=== PATIENT | female | born 1940 | race Caucasian/White ===

== ENCOUNTER 2016-11-24 16:47 | Inpatient (IN) | payer OTHER ==
[~2016-11-24] VITALS: Ht 167.6 cm; Wt 49.8 kg
[~2016-11-24 16:47] MED LIST: ESCI10TA17 PO; FURO20TA PO; NUTR-977 PO; ONDA8TAB6 PO; TRAM-10 PO
[2016-11-24] MEDS ORDERED: OXGN (18:02)
[2016-11-24] MEDS ORDERED: POTA-74 PO (18:02)
[2016-11-24 18:35] LABS: BASO % 0.2 %; BASO ABS # 0.02 K/uL (0-0.2); COMPLETE YES; EOS % 0.6 %; HEMATOCRIT 31.7 % (37-47); IG% 0.3 %; LYMPH % 2.9 %; LYMPH ABS # 0.35 K/uL (1.2-3.4); MEAN CELL VOLUME 82.3 fL (80-100); MEAN CORPUSCULAR HEMOGLOBIN 26.8 pg (25-34); MEAN CORPUSCULAR HGB CONC 32.5 g/dl (32-36); MEAN PLATELET VOLUME 8.2 fL (7.4-10.4); MONO % 3.4 %; NEUT % 92.6 %; PLATELET COUNT 389 K/uL (130-400); RED BLOOD COUNT 3.85 M/uL (4.2-5.4); WHITE BLOOD COUNT 11.92 K/uL (4.8-10.8)
[2016-11-24 18:48] LABS: INR 1.1 (0.9-1.1); PARTIAL THROMBOPLASTIN RATIO 1.3; PROTHROMBIN TIME (PATIENT) 12.1 SECONDS (9.0-12.0)
[2016-11-24 18:52] LABS: CALCIUM 7.9 mg/dl (8.5-10.1); CREATININE 0.37 mg/dl (0.60-1.20); POTASSIUM 3.3 mmol/L (3.5-5.1)
--- NOTE | 2016-11-24 19:07 | DIAGNOSTIC IMAGING REPORT ---
CT OF THE HEAD WITHOUT CONTRAST CLINICAL HISTORY: History of breast and lung carcinoma with brain metastasis. COMPARISON STUDY: MRI of the brain June 13, 2016 and June 14, 2016. TECHNIQUE: Helical axial images of the head were obtained without IV contrast. Automated exposure control was utilized for the study. FINDINGS: No acute intracranial hemorrhage, midline shift or mass effect is present. A 1.7 cm partially calcified extra-axial mass within the right middle cranial fossa is unchanged and likely reflects a meningioma. Edema within the anterior left frontal lobe has improved since exam of June 13, 2016. The enhancing mass shown on that exam is not well depicted on this exam. The findings suggest a treatment response. Edema within the posterior left temporal lobe has slightly increased since prior MRI. This focus of edema measures 3.9 x 3.5 cm. Ventricular system is unremarkable. The basilar cisterns are patent. There are no extra-axial collections. Visualized portions of the sinuses and mastoid air cells are clear. There are no suspicious calvarial lesions. IMPRESSION: 1. No acute intracranial hemorrhage. 2. Interval decrease in edema within the anterior left temporal lobe since MRI of June 13, 2016. This suggests a treatment response with suspected significant decrease in size of the left anterior temporal lobe mass since prior MRI. However, edema within the posterior left temporal lobe has increased since prior MRI. This is nonspecific and suboptimally assessed on this unenhanced exam but could reflect an additional lesion or posttreatment change. Electronically signed by: Darrius Gibson M.D. 11/24/2016 7:05 PM Dictated Date/Time: 11/24/2016 6:56 PM
--- NOTE | 2016-11-24 19:22 | DIAGNOSTIC IMAGING REPORT ---
CT OF THE ABDOMEN AND PELVIS WITHOUT CONTRAST CLINICAL HISTORY: Generalized pain. History of breast and lung cancer. COMPARISON STUDY: PET/CT August 08, 2016. TECHNIQUE: Axial images of the abdomen and pelvis were obtained without IV contrast. Images were reviewed in the axial, sagittal, and coronal planes. FINDINGS: Bilateral pleural effusions are partially imaged on this exam. The right pleural effusion is likely large while the left pleural effusion is likely moderate. Associated airspace opacities are present. The effusions may be partially loculated. There is mild dilatation of the distal descending thoracic aorta which measures 3.4 cm. This exam is significantly compromised given the lack of IV and oral contrast. The gallbladder is surgically absent. Apparent mild intrahepatic biliary ductal dilatation within the left hepatic lobe is similar to PET/CT of August 08, 2016. Anasarca is noted. No pneumatosis, free air or portal venous gas is present. There is no hydronephrosis. There is no evidence for a bowel obstruction. There is mild wall thickening of several portions of the colon, most evident within the ascending colon. There is extensive sigmoid diverticulosis. The sensitivity for the detection of acute diverticulitis is greatly diminished since exam. There is a moderate amount of stool within the rectum. No enlarged abdominal lymph nodes are present. Prominent left external iliac lymph nodes shown on prior exam may have slightly decreased in size but are suboptimally assessed on this examination. A small amount of ascites is noted. IMPRESSION: 1. Study significantly compromised given the lack of IV and oral contrast. 2. Partially visualized moderate bilateral pleural effusions, right larger than left with associated airspace opacities which could reflect atelectasis or consolidation. 3. Generalized anasarca. 4. Extensive sigmoid diverticulosis. The sensitivity for detection of acute diverticulitis is significantly diminished on this exam but no convincing evidence for acute diverticulitis. Mild multifocal nonspecific colonic wall thickening may reflect colitis or be due to underdistention. 5. Interval decrease in left external iliac lymphadenopathy since PET/CT of August 08, 2016. 6. Moderate amount of stool within the rectum. Electronically signed by: Darrius Gibson M.D. 11/24/2016 7:20 PM Dictated Date/Time: 11/24/2016 7:07 PM
--- NOTE | 2016-11-24 20:12 | DIAGNOSTIC IMAGING REPORT ---
CHEST 2 VIEWS ROUTINE CLINICAL HISTORY: Generalized pain. Evaluate for pneumonia. History of lung and breast cancer. COMPARISON STUDY: Chest radiograph June 13, 2016 and PET/CT August 08, 2016. FINDINGS: There are moderate bilateral pleural effusions, left larger than right. Diffuse interstitial thickening has increased. Left perihilar opacity has developed. Cardiomediastinal silhouette is stable. There is no pneumothorax. IMPRESSION: 1. Interval development of moderate bilateral pleural effusions, left larger than right, with associated opacities which could reflect atelectasis or consolidation. 2. Development of left perihilar opacity which could reflect an area of pneumonia or mass. 3. Interval development of interstitial thickening, greater within the left lung. This is nonspecific but may reflect pulmonary edema. Radiographic follow up is recommended for these nonspecific findings. Electronically signed by: Darrius Gibson M.D. 11/24/2016 8:11 PM Dictated Date/Time: 11/24/2016 8:08 PM
--- NOTE | 2016-11-24 20:14 | DIAGNOSTIC IMAGING REPORT ---
LEFT PELVIS/UNILATERAL HIP 2-3VIEWS CLINICAL HISTORY: Left hip pain. Evaluate for fracture. COMPARISON: PET/CT August 08, [address] of the abdomen and pelvis performed earlier today. FINDINGS: There are pelvic surgical clips. The sacroiliac joints and symphysis pubis are intact. No acute fracture is identified within the pelvis or the hips. There is a moderate amount of stool within the rectum. IMPRESSION: 1. No acute fracture within the pelvis or hips. 2. Moderate to large amount of stool within the rectum. Electronically signed by: Darrius Gibson M.D. 11/24/2016 8:12 PM Dictated Date/Time: 11/24/2016 8:11 PM
--- NOTE | 2016-11-24 20:26 | DIAGNOSTIC IMAGING REPORT ---
LEFT LOWER EXTREMITY VENOUS DOPPLER CLINICAL HISTORY: Left leg pain. COMPARISON STUDY: Bilateral lower extremity venous Doppler July 16, 2016. TECHNIQUE: Sonography of the deep venous system of the left lower extremity was performed. Compression and augmentation were evaluated. FINDINGS: The left common femoral, superficial femoral and popliteal veins were compressible. Augmentation was normal. Flow was shown within the deep calf vessels. IMPRESSION: No evidence of deep venous thrombus within the left lower extremity. Electronically signed by: Darrius Gibson M.D. 11/24/2016 8:24 PM Dictated Date/Time: 11/24/2016 8:23 PM
[2016-11-24 21:17] LABS: MAGNESIUM 2.1 mg/dl (1.8-2.4)
[2016-11-24] MEDS ORDERED: POTASSIUM CHLORIDE 10 MEQ TABCR PO STA (21:46)
[2016-11-24] MEDS ORDERED: HYDROmorphone INJ 0.5 MG/0.5 ML SYR IV PRN (23:00)
[2016-11-24] MEDS ORDERED: ALBUT/IPRATROP 3MG/0.5MG NEB 3 ML VIAL INH PRN (23:00)
[2016-11-24] MEDS ORDERED: OXYCODONE/ACETAMINOPHEN 5-325 TAB PO PRN (23:00)
[2016-11-24] MEDS ORDERED: NITROGLYCERIN 0.4 MG SL PER TAB CHARGE SL PRN (23:00)
[2016-11-24] MEDS ORDERED: ACETAMINOPHEN 325 MG TAB PO PRN (23:00)
[2016-11-24] MEDS ORDERED: ONDANSETRON INJ 2 MG/ML 2 ML VIAL IV PRN (23:00)
[2016-11-24] MEDS ORDERED: FUROSEMIDE INJ 40 MG in SYRINGE 0 ML IV STA (23:15)
[2016-11-24] MEDS ORDERED: DEXAMETHASONE SOD INJ 10 MG/ML VIAL IV STA (23:15)
[2016-11-24] MEDS ORDERED: FUROSEMIDE 40 MG/4 ML VIAL ONE (23:22)
[2016-11-24 23:42] LABS: THYROID STIMULATING HORMONE 1.75 uIu/ml (0.300-4.500)
[2016-11-24 23:55] VITALS: BP 134/84; PULSE 83; TEMP 37; O2SAT 97; Ht 167.6 cm; Wt 49.8 kg
[2016-11-25] VITALS (7 sets, daily range): BP systolic 115–134; BP diastolic 80–88; PULSE 83–93; TEMP 36.2–37; O2SAT 93–99
--- NOTE | 2016-11-25 00:02 | EMERGENCY ROOM VISIT NOTE ---
History Report prepared by vEe: Tana Kellogg Under the Supervision of: Dr. Julien iWse M.D. First contact with patient: 17:30 Chief Complaint: PAIN (GENERALIZED) Stated Complaint: GEN. BODY PAIN History of Present Illness The patient is a 76 year old female who presents to the Emergency Room with complaints of worsening left-sided leg pain and headache beginning today. 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 The patient has finished radiation however she did have multiple rounds of radiation in 2015. Today the patient was still in bed around 3pm when her went in to try and get her up out of bed. She was complaining of significant pain to the left side of her head and leg. However when EMS arrived to the scene she did not complain of any pain to them. The patient has had a decrease in appetite and is having difficulty chewing and swallowing. She will chew the food and then spit it out. This has worsened over the past few weeks. The patient has also been experiencing swelling to her legs since June. She has been on multiple rounds of diuretics to try and decrease the swelling. Recently she was seen in Dr. Elias's office, who follows the patient, for cough with clear sputum. A chest X -Ray revealed bronchitis. She was put on antibiotics, a steroid, and at home oxygen. Yesterday the patient was seen again at the office and had another chest X-ray done which showed fluid in her left lung. Her kidney function was good and she was put on a potassium pill. The patient does have a PET scan scheduled for this upcoming week to see if the cancer has returned. 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 Per the patient, she has left sided groin pain and left leg pain. She denies pain to any other body part. She is not on a blood thinner. Source of History: patient History Limited By: other (Poor memory) Onset: today Position: leg (left) Timing: worsening Modifying Factors (Worsening): movement Associated Symptoms: + cough, + headache, + weakness Note: Patient has been experiencing trouble chewing and swallowing. Review of Systems See HPI for pertinent positives & negatives. A total of 10 systems reviewed and were otherwise negative. Past Medical & Surgical Medical Problems: (1) Dyslipidemia (2) Hiatal hernia (3) HTN (hypertension) (4) Lung cancer (5) Malignant neoplasm of upper-outer quadrant of female breast (6) Respiratory failure, acute (7) Tobacco abuse Surgical Problems: (1) History of hysterectomy (2) History of lumpectomy of left breast (3) Hx of cholecystectomy Family History Patient reports no known family medical history. Social History Smoking Status: Former Smoker Alcohol Use: none Drug Use: none Marital Status: Housing Status: lives with significant other Occupation Status: retired Current/Historical Medications Scheduled Enteral Nutrition Formula (Ensure Plus Vanilla), 0.5 CAN PO DAILY Escitalopram (Lexapro), 20 MG PO DAILY Furosemide (Lasix), 20 MG PO DAILY Ondansetron Hcl (Zofran), 8 MG PO DAILY Oxygen (Oxygen), 2 LITERS NA CONTINOUS Potassium Chloride (Potassium Chloride Er), 10 MEQ PO DAILY Scheduled PRN Tramadol (Ultram), 50 MG PO Q4H PRN for Pain Allergies Coded Allergies: Chocolate (Unverified Allergy, Mild, RASH, 04/26/16) NO KNOWN DRUG ALLERGIES (Verified Allergy, Mild, ., 11/24/16) Blue Dyes (Parenteral) (Verified Allergy, Unknown, hot flash, 06/13/16) states had blue dye for test in the 1970s and became very hot as soon as administered. Physical Exam Vital Signs Date Time Temp Pulse Resp B/P Pulse Ox O2 Delivery O2 Flow Rate FiO2 11/24/16 23:25 82 16 135/85 95 Room Air 11/24/16 22:15 80 20 125/71 96 Room Air 11/24/16 20:38 86 20 127/78 96 Nasal Cannula 2.0 11/24/16 19:12 89 20 147/94 91 Nasal Cannula 2.0 11/24/16 17:01 94 11/24/16 16:55 37.0 92 20 124/85 94 Nasal Cannula 2.0 Physical Exam Constitutional: Vital signs reviewed. Eyes: Pupils are equal round reactive to light. Conjunctiva are noninjected. ENT: Pharynx is clear without erythema or exudate. Mucous membranes are dry. Neck supple without meningeal signs. Respiratory: Clear to auscultation bilaterally. Breath sounds are equal bilaterally. Cardiovascular: Regular rate and rhythm. No rubs or gallops. GI: Soft, nondistended. Left lower quadrant tenderness with no guarding. Bowel sounds are present. Musculoskeletal: Mild left hip tenderness, no swelling or erythema, increased warmth. Calf tenderness to left leg. Integumentary: No cyanosis. Neurologic: The patient is awake and alert. Cranial nerves II-XII are intact. Motor is 5 out of 5 all extremities. Sensation is intact to light touch all extremities. Normal speech. No pronator drift. Psychiatric: Normal affect. Medical Decision & Procedures ER Provider Diagnostic Interpretation: Other radiology results as stated below per my review and the radiologist's interpretation: LEFT LOWER EXTREMITY VENOUS DOPPLER CLINICAL HISTORY: Left leg pain. COMPARISON STUDY: Bilateral lower extremity venous Doppler July 16, 2016. TECHNIQUE: Sonography of the deep venous system of the left lower extremity was performed. Compression and augmentation were evaluated. FINDINGS: The left common femoral, superficial femoral and popliteal veins were compressible. Augmentation was normal. Flow was shown within the deep calf vessels. IMPRESSION: No evidence of deep venous thrombus within the left lower extremity. Electronically signed by: Darrius Gibson M.D. 11/24/2016 8:24 PM Dictated Date/Time: 11/24/2016 8:[address] OF THE HEAD WITHOUT CONTRAST CLINICAL HISTORY: History of breast and lung carcinoma with brain metastasis. COMPARISON STUDY: MRI of the brain June 13, 2016 and June 14, 2016. TECHNIQUE: Helical axial images of the head were obtained without IV contrast. Automated exposure control was utilized for the study. FINDINGS: No acute intracranial hemorrhage, midline shift or mass effect is present. A 1.7 cm partially calcified extra-axial mass within the right middle cranial fossa is unchanged and likely reflects a meningioma. Edema within the anterior left frontal lobe has improved since exam of June 13, 2016. The enhancing mass shown on that exam is not well depicted on this exam. The findings suggest a treatment response. Edema within the posterior left temporal lobe has slightly increased since prior MRI. This focus of edema measures 3.9 x 3.5 cm. Ventricular system is unremarkable. The basilar cisterns are patent. There are no extra-axial collections. Visualized portions of the sinuses and mastoid air cells are clear. There are no suspicious calvarial lesions. IMPRESSION: 1. No acute intracranial hemorrhage. 2. Interval decrease in edema within the anterior left temporal lobe since MRI of June 13, 2016. This suggests a treatment response with suspected significant decrease in size of the left anterior temporal lobe mass since prior MRI. However, edema within the posterior left temporal lobe has increased since prior MRI. This is nonspecific and suboptimally assessed on this unenhanced exam but could reflect an additional lesion or posttreatment change. Electronically signed by: Darrius Gibson M.D. 11/24/2016 7:05 PM Dictated Date/Time: 11/24/2016 6:56 PM CHEST 2 VIEWS ROUTINE CLINICAL HISTORY: Generalized pain. Evaluate for pneumonia. History of lung and breast cancer. COMPARISON STUDY: Chest radiograph June 13, 2016 and PET/CT August 08, 2016. FINDINGS: There are moderate bilateral pleural effusions, left larger than right. Diffuse interstitial thickening has increased. Left perihilar opacity has developed. Cardiomediastinal silhouette is stable. There is no pneumothorax. IMPRESSION: 1. Interval development of moderate bilateral pleural effusions, left larger than right, with associated opacities which could reflect atelectasis or consolidation. 2. Development of left perihilar opacity which could reflect an area of pneumonia or mass. 3. Interval development of interstitial thickening, greater within the left lung. This is nonspecific but may reflect pulmonary edema. Radiographic follow up is recommended for these nonspecific findings. Electronically signed by: Darrius Gibson M.D. 11/24/2016 8:11 PM Dictated Date/Time: 11/24/2016 8:[address] OF THE ABDOMEN AND PELVIS WITHOUT CONTRAST CLINICAL HISTORY: Generalized pain. History of breast and lung cancer. COMPARISON STUDY: PET/CT August 08, 2016. TECHNIQUE: Axial images of the abdomen and pelvis were obtained without IV contrast. Images were reviewed in the axial, sagittal, and coronal planes. FINDINGS: Bilateral pleural effusions are partially imaged on this exam. The right pleural effusion is likely large while the left pleural effusion is likely moderate. Associated airspace opacities are present. The effusions may be partially loculated. There is mild dilatation of the distal descending thoracic aorta which measures 3.4 cm. This exam is significantly compromised given the lack of IV and oral contrast. The gallbladder is surgically absent. Apparent mild intrahepatic biliary ductal dilatation within the left hepatic lobe is similar to PET/CT of August 08, 2016. Anasarca is noted. No pneumatosis, free air or portal venous gas is present. There is no hydronephrosis. There is no evidence for a bowel obstruction. There is mild wall thickening of several portions of the colon, most evident within the ascending colon. There is extensive sigmoid diverticulosis. The sensitivity for the detection of acute diverticulitis is greatly diminished since exam. There is a moderate amount of stool within the rectum. No enlarged abdominal lymph nodes are present. Prominent left external iliac lymph nodes shown on prior exam may have slightly decreased in size but are suboptimally assessed on this examination. A small amount of ascites is noted. IMPRESSION: 1. Study significantly compromised given the lack of IV and oral contrast. 2. Partially visualized moderate bilateral pleural effusions, right larger than left with associated airspace opacities which could reflect atelectasis or consolidation. 3. Generalized anasarca. 4. Extensive sigmoid diverticulosis. The sensitivity for detection of acute diverticulitis is significantly diminished on this exam but no convincing evidence for acute diverticulitis. Mild multifocal nonspecific colonic wall thickening may reflect colitis or be due to underdistention. 5. Interval decrease in left external iliac lymphadenopathy since PET/CT of August 08, 2016. 6. Moderate amount of stool within the rectum. Electronically signed by: Darrius Gibson M.D. 11/24/2016 7:20 PM Dictated Date/Time: 11/24/2016 7:07 PM LEFT PELVIS/UNILATERAL HIP 2-3VIEWS CLINICAL HISTORY: Left hip pain. Evaluate for fracture. COMPARISON: PET/CT August 08, [address] of the abdomen and pelvis performed earlier today. FINDINGS: There are pelvic surgical clips. The sacroiliac joints and symphysis pubis are intact. No acute fracture is identified within the pelvis or the hips. There is a moderate amount of stool within the rectum. IMPRESSION: 1. No acute fracture within the pelvis or hips. 2. Moderate to large amount of stool within the rectum. Electronically signed by: Darrius Gibson M.D. 11/24/2016 8:12 PM Dictated Date/Time: 11/24/2016 8:11 PM Laboratory Results 11/24/16 18:16 Red Blood Count 3.85, Mean Corpuscular Volume 82.3, Mean Corpuscular Hemoglobin 26.8, Mean Corpuscular Hemoglobin Concent 32.5, Mean Platelet Volume 8.2, Neutrophils (%) (Auto) 92.6, Lymphocytes (%) (Auto) 2.9, Monocytes (%) (Auto) 3.4, Eosinophils (%) (Auto) 0.6, Basophils (%) (Auto) 0.2, Neutrophils # (Auto) 11.05, Lymphocytes # (Auto) 0.35, Monocytes # (Auto) 0.40, Eosinophils # (Auto) 0.07, Basophils # (Auto) 0.02 11/24/16 18:16 Test 11/24/16 18:16 11/24/16 22:55 White Blood Count 11.92 K/uL (4.8-10.8) Red Blood Count 3.85 M/uL (4.2-5.4) Hemoglobin 10.3 g/dL (12.0-16.0) Hematocrit 31.7 % (37-47) Mean Corpuscular Volume 82.3 fL (80-100) Mean Corpuscular Hemoglobin 26.8 pg (25-34) Mean Corpuscular Hemoglobin Concent 32.5 g/dl (32-36) Platelet Count 389 K/uL (130-400) Mean Platelet Volume 8.2 fL (7.4-10.4) Neutrophils (%) (Auto) 92.6 % Lymphocytes (%) (Auto) 2.9 % Monocytes (%) (Auto) 3.4 % Eosinophils (%) (Auto) 0.6 % Basophils (%) (Auto) 0.2 % Neutrophils # (Auto) 11.05 K/uL (1.4-6.5) Lymphocytes # (Auto) 0.35 K/uL (1.2-3.4) Monocytes # (Auto) 0.40 K/uL (0.11-0.59) Eosinophils # (Auto) 0.07 K/uL (0-0.5) Basophils # (Auto) 0.02 K/uL (0-0.2) RDW Standard Deviation 56.9 fL (36.4-46.3) RDW Coefficient of Variation 18.8 % (11.5-14.5) Immature Granulocyte % (Auto) 0.3 % Immature Granulocyte # (Auto) 0.03 K/uL (0.00-0.02) Prothrombin Time 12.1 SECONDS (9.0-12.0) Prothromb Time International Ratio 1.1 (0.9-1.1) Activated Partial Thromboplast Time 32.6 SECONDS (21.0-31.0) Partial Thromboplastin Ratio 1.3 Anion Gap 10.0 mmol/L (3-11) Est Creatinine Clear Calc Drug Dose 110.3 ml/min Estimated GFR () 120.3 Estimated GFR (Non- 103.8 BUN/Creatinine Ratio 31.0 (10-20) Calcium Level 7.9 mg/dl (8.5-10.1) Magnesium Level 2.1 mg/dl (1.8-2.4) Total Bilirubin 0.8 mg/dl (0.2-1) Direct Bilirubin 0.5 mg/dl (0-0.2) Aspartate Amino Transf (AST/SGOT) 18 U/L (15-37) Alanine Aminotransferase (ALT/SGPT) 13 U/L (12-78) Alkaline Phosphatase 67 U/L (45-117) Pro-B-Type Natriuretic Peptide 4358 pg/ml (0-1800) Total Protein 5.0 gm/dl (6.4-8.2) Albumin 1.8 gm/dl (3.4-5.0) Lipase 70 U/L (73-393) Thyroid Stimulating Hormone (TSH) 1.750 uIu/ml (0.300-4.500) Laboratory results as reviewed by me. Medications Administered Medications (Trade) Dose Ordered Sig/Darcy Route Start Time Stop Time Status Last Admin Dose Admin Potassium Chloride (Klor-Con M10) 20 meq NOW STAT PO 11/24/16 21:46 11/24/16 21:49 DC 11/24/16 21:56 20 MEQ Dexamethasone Sodium Phosphate 10 mg 10 mg NOW STAT IV 11/24/16 23:15 11/24/16 23:16 DC 11/24/16 23:27 10 MG Furosemide/Syringe (Lasix Inj/ Syringe) 4 ml @ 4 mls/min ONE STAT IV 11/24/16 23:15 11/24/16 23:16 DC 11/24/16 23:29 4 MLS/MIN ED Course 1734: The patient was evaluated in room C2. A complete history and physical exam was performed. 0: I discussed the patient's test results with her family. 2049: I discussed the rest results with the patient and her family. They are requesting for hospitalization. The patient has pneumonia on chest X-Ray and was just on antibiotics for similar symptoms. 2051: [facility] We discussed the patient and her results. The patient will be further evaluated by Dr. Oli Natarajan. Medical Decision This is a 76-year-old female presents with left-sided abdominal, leg and head pain. Differential diagnosis includes intracranial hemorrhage, mass, DVT, hip fracture, radiculopathy, diverticulitis. I did perform a limited focused review of portions of the patient's old chart on the electronic medical record. The patient has had no recent pertinent visits to this hospital. I did evaluate the patient as noted above. The patient has very poor memory. I did obtain history from the patient's daughter as well as her . She does have multiple medical issues. She is here today because she developed a headache. She also complained of significant left leg pain when they helped out of bed by her . Currently she has no complaints. She states he leg does not bother her and she does not have a headache. On examination she is neurologically intact here and she does have some tenderness to the left calf and hip as well as some left lower quadrant abdominal pain. IV access was established. The patient was placed on a continuous lunchroom monitor. I did order and personally review the patient's 12-lead EKG and chest x-ray as described above. She does have bilateral effusions on chest x-ray as well as what appears to be pneumonia on the left side. I did order and review the patient's blood work as noted in the electronic medical record. Her protein and albumin are low. She has hypocalcemia. She is anemic. I did order a CT of the abdomen and pelvis. I did review the images myself as well as the radiology report as described above. There is no evidence of diverticulitis. I did a Doppler of the left lower extremity which shows no evidence of DVT. X- rays of the pelvis and hip did not show any signs of fracture. I did discuss the test results with the patient's family. They did request she be hospitalized. I did feel this was reasonable given that she was recently on antibiotics and has pneumonia on chest x-ray. I did discuss case with the hospitalist and bilingual patient support caseworker. Consults Time Called: 2049 Consulting Physician: Dr. Oli Natarajan Returned Call: [address] Baird of [facility]. We discussed the patient and her results. The patient will be further evaluated by Dr. Oli Natarajan. Impression Primary Impression: Pneumonia Additional Impressions: Failure of outpatient treatment Bilateral pleural effusion Left leg pain Left sided abdominal pain Hypocalcemia Anemia Scribe Attestation The scribe's documentation has been prepared under my direct and personally reviewed by me in its entirety. I confirm that the note above accurately reflects all work, treatment, procedures, and medical decision making performed by me. Departure Information Dispostion Being Evaluated By Hospitalist Referrals Rad Elias D.O. (PCP) Problem Qualifiers Primary Impression: Pneumonia Pneumonia type: due to unspecified organism Laterality: bilateral Lung location: unspecified part of lung Qualified Codes: J18.9 - Pneumonia, unspecified organism
[2016-11-25] MEDS ORDERED: DOCUSATE SODIUM/SENNA 50/8.6MG TAB PO ONE (00:11)
[2016-11-25 00:14] LABS: ALLEN TEST POS (POS); ARTERIAL BLD GAS O2 SATURATION 94.4 % (90-95); ARTERIAL BLOOD GAS BASE EXCESS 3.1 mEq/L (-9-1.8); ARTERIAL BLOOD GAS HCO3 27 mmol/L (19-24); ARTERIAL BLOOD GAS PO2 74 mm/Hg (80-95); ARTERIAL BLOOD GAS pH 7.48 (7.35-7.45); O2 ADMINISTRATION 2L
[2016-11-25] MEDS ORDERED: POLYETHYLENE (MIRALAX) 17 GM PACK PO ONE (00:15)
[2016-11-25 08:11] LABS: COMPLETE YES; HEMATOCRIT 34.5 % (37-47); IG% 0.3 %; LYMPH % 3.1 %; LYMPH ABS # 0.19 K/uL (1.2-3.4); MEAN CELL VOLUME 82.5 fL (80-100); MEAN CORPUSCULAR HEMOGLOBIN 26.6 pg (25-34); MEAN CORPUSCULAR HGB CONC 32.2 g/dl (32-36); MEAN PLATELET VOLUME 8.2 fL (7.4-10.4); MONO % 1.1 %; NEUT % 95.5 %; PLATELET COUNT 384 K/uL (130-400); RED BLOOD COUNT 4.18 M/uL (4.2-5.4); WHITE BLOOD COUNT 6.11 K/uL (4.8-10.8)
[2016-11-25] MEDS: DOCUSATE SODIUM/SENNA 50/8.6MG TAB PO SCH (08:17)
[2016-11-25] MEDS: ESCITALOPRAM OXALATE 10 MG TAB PO SCH (08:17)
--- NOTE | 2016-11-25 08:17 | DIAGNOSTIC IMAGING REPORT ---
(LIVER) ABDOMEN LIMITED CLINICAL HISTORY: Anasarca. Evaluate for cirrhosis. Breast and lung carcinoma COMPARISON STUDY: CT scan dated 11/24/2016 FINDINGS: The pancreas was nonvisualized. There is mild intrahepatic biliary ductal dilatation. There is slight coarsening of hepatic echotexture. No focal hepatic masses were visualized. The gallbladder surgically absent. The common bile duct measures 5 mm. There is no right-sided hydronephrosis. There is a complex right pleural effusion. There is a small amount perihepatic fluid. IMPRESSION: 1. Intrahepatic biliary ductal dilatation 2. 5 mm common bile duct 3. Surgically absent gallbladder 4. Small amount of perihepatic fluid. Moderate complex right pleural effusion. Electronically signed by: Alberto Stephens M.D. 11/25/2016 8:15 AM Dictated Date/Time: 11/25/2016 8:12 AM
[2016-11-25] MEDS: POTASSIUM CHLORIDE 10 MEQ TABCR PO SCH (08:18)
--- NOTE | 2016-11-25 08:23 | HISTORY & PHYSICAL EXAMINATION ---
DATE OF ADMISSION: 11/24/2016 PRIMARY CARE PHYSICIAN: Dr. Elias. History obtained from patient, records, patient's family. Patient is fair historian. CHIEF COMPLAINT: Leg pain as per patient headache as per records, although patient denies this. 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 In December 2015, px found to have showed hypermetabolic mediastinal lymphadenopathy suspicious for neoplasm and lung nodules on PET scan. Bronchoscopy was showed adenocarcinoma. Patient underwent combined chemoradiation. January 2016, patient noted to have blurred vision sx. An MRI of the brain showed a right temporal mass. Initially thought to be meningioma as per records. June of 2016, a ffup MRI was done at [facility] showed a 2.4 x 2.3 cm mass left frontotemporal lobe with surrounding vasogenic edema with a right midline shift consistent with metastatic foci. There was also a 4-mm mass on the left cerebellum. Patient transferred to [facility], started on steroids. Patient was not felt to be a neurosurgical candidate [place] [facility] Radiation Oncology consulted. July of 2016 Family sought second opinion from [facility] regarding brain mets. Underwent gamma knife radiotherapy for brain tumor in [place] by Dr. Meier. August 2016 FFup MRI of the brain in showed left anterior temporal lobe lesion smaller in size. T2 isointense lesion, right anterior temporal convexity unchanged. PET scan noted pelvic adenopathy suspicious for metastatic disease. Patient subsequently underwent radiation therapy at [facility]. Completed last October 2016. Since the last few months, the patient has been troubled by bilateral leg swelling, which would improve w outpatient diuretic courses. Initially thought to be related to intermittent steroid courses for brain tumor. Patient's daughter also troubled by persistent dry cough symptoms. Few days ago, the patient's family worried about patient occasionally being confused. Patient seen at PCP's office for worsening swelling of both legs, Lasix prescribed and LE swelling improved. At some point, the patient noted to be hypoxemic, needed oxygen at home. Patient denies chest pain, shortness of breath. Patient noted to be unstable, almost falling back. Occasional complaints of vague headaches. Patient has no recollection of above symptoms. Marked short term memory impairment since gamma knife surgery last 07/2016. Tonight, patient complained of pain more on the left leg and headache complaints which patient denied upon arrival of EMS. No nausea, no vomiting. Patient also complained to family of left-sided abdominal pain, achy, some constipation. Denies inordinate intake of home narcotics. Patient brought to the Emergency Room for multiple complaints. MEDICAL HISTORY: As above. The patient is scheduled for an outpatient PET scan next week. SURGICAL HISTORY: Cholecystectomy, left breast surgery, hysterectomy. HOME MEDICATIONS: Include Zofran, tramadol, potassium chloride, escitalopram and furosemide. ALLERGIES: BLUE DYE. FAMILY HISTORY: Cancer. PERSONAL AND SOCIAL HISTORY: Past tobacco abuse. No chronic intake of alcoholic beverages. Lives with . REVIEW OF SYSTEMS: As per HPI. All other ROS negative. PHYSICAL EXAMINATION: VITAL SIGNS: Blood pressure was noted to be 124/85, pulse rate 94, RR 20, temperature 37, sats 94 on 2 liters. GENERAL: oriented, coherent, appropriate albeit slowed response to questions. Hyposthenic. no respiratory distress. SKIN: Pallor. HEENT: Pale palpebral conjunctivae. Dry mucosa. Nasal cannula in place. NECK: No JVD. supple CHEST: Decreased effort. HEART: Regular rate and rhythm. ABDOMEN: Some tenderness on the left. EXTREMITIES: Bilateral lower extremity edema. No tenderness. NEUROLOGIC: Some slowed response, decreased strength on the LLE (chronic as per patient), gait and stance not assessed. LABS: Hemoglobin was noted to be 10.3, hematocrit 31.7, white cell count 11.9, platelets of 389. Sodium 140, potassium 4.3, chloride 101, CO2 of 29, BUN 11, creatinine 0.3. Troponin 0.162. BNP 4500 Chest x-ray showed some congestion. CT head, no acute intracranial hemorrhage, interval decreased edema anterior left temporal lobe since June 2016 MRI, suggesting treatment response; however, edema on posterior left temporal lobe has increased since prior MRI, nonspecific, additional lesion versus post-treatment change. CT abdomen and pelvis showed anasarca, fecal retention. Interval decrease in left external iliac lymphadenopathy compared to PET CT 08/08/2016. Sigmoid diverticulosis, right pleural effusion. Lower extremity ultrasound negative DVT. ASSESSMENT: 1. Intermittent headache symptoms with some gait instability/leg weakness cognitive dysfunction/short term memory impairment as per family ? increased intracranial pressure 2 to new intracranial mets. History of lung adenoCA sp chemoradiation with known brain and pelvic LN mets status post sp gamma knife tx for brain mets (09/2016, [facility]) sp radiotx of pelvic adenopathy 2. resp failure on supplemental home O2 subacute O2 dependent since the last 2 weeks px denies sob sx pulm congestion on CXR troponin bump marc LE swelling the last few months on internittent diuretic tx anasarca on CT ro cardiomyopathy (hx chemotx), chronic liver dse 3. Hxistory of left breast CA sp surgery. uterine CA sp suregry (2008) 4. Hypertension, stable. 5. past tobacco abuse. 6. acute on chronic anemia 7. hypokalemia 2 to home diuretic tx 8. abdominal pain, constipation 9. malnutrition (low BMI) PLAN: PCU MRI of the brain. Decadron for one dose now for poss increased ICP 2 to poss vasogenic edema from poss new intracranial mets as suggested by new CT head baseline EKG additional Lasix for pulm congestion/increased marc leg swelling replace K 2D echo, liver ultrasound for edema/anasarca workup. anemia gilliam laxative Nutrition consult PT/OT eval Further management pending gilliam results. DVT prophylaxis, SCDs, re possible intracranial mets. Full code. Daughter requesting for updates from providers, Miss Juana Arriaga at [phone]. MTDD
--- NOTE | 2016-11-25 08:26 | ECHOCARDIOGRAM REPORT ---
*NOTICE TO RECEIVING REPUBLICAN AGENCY This information is strictly Confidential and protected under [place] law. [place] law prohibits you from making any further disclosure of this information unless further disclosure is expressly permitted by the written consent of the person to whom it pertains or is authorized by law. A general authorization for the release of medical or other information is not sufficient for this purpose. Hospital accepts no responsibility if the information is made available to any other person, INCLUDING THE PATIENT. Interpretation Summary * Name: BETTY SHERWOOD Study Date: 11/25/2016 08:22 AM BP: 133/86 mmHg * Patient Location: [facility]\S\N278\S\1 HR: 83 * : 1940 (M/d/yyyy) Gender: Female Height: 65 in * Age: 76 yrs Ethnicity: CA Weight: 119 lb * Ordering Physician: Jac Baird * Performed By: Tamia Zaragoza * * Reason For Study: LEG SWELLING, PULM CONGESTION * BSA: 1.6 m2 * -- Conclusions -- * The left ventricular cavity is small. * There is severe concentric left ventricular hypertrophy. * The left ventricle is hyperdynamic. * The left ventricular wall motion is normal. * Ejection Fraction = >70 %. * Grade I diastolic dysfunction, (abnormal relaxation pattern). * Aortic valve sclerosis mild, without significant aortic valvular stenosis. Procedure Details * A complete two-dimensional transthoracic echocardiogram was performed (2D, M-mode, Doppler and color flow Doppler). * The study was technically difficult. * There were technical limitations due to patient'spoor positioning Left Ventricle * The left ventricular cavity is small. * There is severe concentric left ventricular hypertrophy. * Ejection Fraction = >70 %. * The left ventricle is hyperdynamic. * The left ventricular wall motion is normal. Right Ventricle * The right ventricle is normal in size and function. Atria * The left atrial size is normal. * Right atrial size is normal. * No ASD detected; PFO is not assessed. Mitral Valve * The mitral valve leaflets are mildly thickened. * There is no mitral valve stenosis. * There is trace mitral regurgitation. Tricuspid Valve * The tricuspid valve is not well visualized, but is grossly normal. * There is no tricuspid stenosis. * There is trace tricuspid regurgitation. * Doppler findings do not suggest pulmonary hypertension. Aortic Valve * The aortic valve is trileaflet. * Aortic valve sclerosis mild, without significant aortic valvular stenosis. * No aortic regurgitation is present. Pulmonic Valve * The pulmonic valve is not well visualized. Great Vessels * The aortic root is normal size. Pericardium/Pleural * There is no pericardial effusion. Left Ventricular Diastolic Function * Grade I diastolic dysfunction, (abnormal relaxation pattern). MMode 2D Measurements and Calculations IVSd 1.7 cm IVSs 2.3 cm LVIDd 2.8 cm LVIDs 1.5 cm LVPWd 1.4 cm LVPWs 2.1 cm IVS/LVPW 1.2 FS 45.0 % EDV(Teich) 29.1 ml ESV(Teich) 6.4 ml EF(Teich) 78.1 % EDV(cubed) 21.6 ml ESV(cubed) 3.6 ml EF(cubed) 83.4 % % IVS thick 39.4 % % LVPW thick 48.9 % LV mass(C)d 148.2 grams LV mass(C)dI 93.4 grams/m\S\2 LV mass(C)s 170.2 grams LV mass(C)sI 107.3 grams/m\S\2 SV(Teich) 22.7 ml SI(Teich) 14.3 ml/m\S\2 SV(cubed) 18.0 ml SI(cubed) 11.3 ml/m\S\2 ACS 0.96 cm LA dimension 2.5 cm asc Aorta Diam 3.3 cm LVOT diam 1.5 cm LVOT area 1.9 cm\S\2 LVAd ap4 16.4 cm\S\2 LVLd ap4 6.1 cm EDV(MOD-sp4) 34.9 ml EDV(sp4-el) 37.7 ml LVAs ap4 6.4 cm\S\2 LVLs ap4 5.2 cm ESV(MOD-sp4) 6.8 ml ESV(sp4-el) 6.6 ml EF(MOD-sp4) 80.4 % EF(sp4-el) 82.4 % LVAd ap2 16.7 cm\S\2 LVLd ap2 5.9 cm EDV(MOD-sp2) 38.8 ml EDV(sp2-el) 39.9 ml LVAs ap2 6.2 cm\S\2 LVLs ap2 4.5 cm ESV(MOD-sp2) 8.4 ml ESV(sp2-el) 7.4 ml EF(MOD-sp2) 78.4 % EF(sp2-el) 81.5 % LVLd %diff -2.87 % EDV(MOD-bp) 38.0 ml LVLs %diff -16.65 % ESV(MOD-bp) 8.1 ml EF(MOD-bp) 78.7 % SV(MOD-sp4) 28.0 ml SI(MOD-sp4) 17.7 ml/m\S\2 SV(MOD-sp2) 30.5 ml SI(MOD-sp2) 19.2 ml/m\S\2 SV(MOD-bp) 29.9 ml SI(MOD-bp) 18.8 ml/m\S\2 SV(sp4-el) 31.0 ml SI(sp4-el) 19.6 ml/m\S\2 SV(sp2-el) 32.5 ml SI(sp2-el) 20.5 ml/m\S\2 Doppler Measurements and Calculations MV E max miguel 72.8 cm/sec MV A max miguel 138.6 cm/sec MV E/A 0.53 MV dec time 0.17 sec Ao V2 max 281.3 cm/sec Ao max PG 31.7 mmHg Ao max PG (full) 12.2 mmHg Ao V2 mean 178.8 cm/sec Ao mean PG 15.7 mmHg Ao mean PG (full) 7.5 mmHg Ao V2 VTI 43.5 cm EVANGELIST(I,A) 1.5 cm\S\2 EVANGELIST(I,D) 1.5 cm\S\2 EVANGELIST(V,A) 1.5 cm\S\2 EVANGELIST(V,D) 1.5 cm\S\2 LV V1 max PG 19.5 mmHg LV V1 mean PG 8.2 mmHg LV V1 max 220.6 cm/sec LV V1 mean 124.5 cm/sec LV V1 VTI 34.1 cm MR max miguel 381.4 cm/sec MR max PG 58.2 mmHg SV(LVOT) 64.0 ml SI(LVOT) 40.3 ml/m\S\2 PA V2 max 110.5 cm/sec PA max PG 4.9 mmHg
[2016-11-25 08:51] LABS: BLOOD UREA NITROGEN 10 mg/dl (7-18); BUN/CREATININE RATIO 25.9 (10-20); CALCIUM 8.1 mg/dl (8.5-10.1); CARBON DIOXIDE 27 mmol/L (21-32); CHLORIDE 100 mmol/L (98-107); CREATININE 0.39 mg/dl (0.60-1.20); FERRITIN 275.9 ng/ml (8.0-388.0); GLUCOSE 109 mg/dl (70-99); POTASSIUM 3.9 mmol/L (3.5-5.1); SODIUM 140 mmol/L (136-145)
[2016-11-25] MEDS ORDERED: FUROSEMIDE 20 MG TAB PO SCH (09:00)
[2016-11-25] MEDS ORDERED: PIPERACILL/TAZOBAC CONSULT ACTIVE PRN (11:15)
[2016-11-25 11:43] LABS: CKMB/CK RATIO 9.7 (0-3.0)
[2016-11-25 11:59] LABS: COMPLETE YES; HEMATOCRIT 38.7 % (37-47); IG% 0.4 %; LYMPH % 4.2 %; LYMPH ABS # 0.31 K/uL (1.2-3.4); MEAN CELL VOLUME 82.9 fL (80-100); MEAN CORPUSCULAR HEMOGLOBIN 26.6 pg (25-34); MEAN PLATELET VOLUME 8.2 fL (7.4-10.4); MONO % 2.4 %; PLATELET COUNT 431 K/uL (130-400); RED BLOOD COUNT 4.67 M/uL (4.2-5.4); WHITE BLOOD COUNT 7.36 K/uL (4.8-10.8)
[2016-11-25] MEDS ORDERED: PIPERACILL/TAZOBAC IV 3.375 GM in DEXTROSE 5% 100ML IV ONE (12:00)
[2016-11-25] MEDS ORDERED: ALBUMIN 25% 50 ML with FUROSEMIDE INJ 40 MG IV ONE ×2 (12:00)
[2016-11-25] MEDS: DEXAMETHASONE INJ 4 MG in SYRINGE 0 ML IV SCH ×3 (12:01→23:51)
--- NOTE | 2016-11-25 12:10 | DIAGNOSTIC IMAGING REPORT ---
CT OF THE CHEST WITHOUT IV CONTRAST CLINICAL HISTORY: Pleural effusion, possible pneumonia. COMPARISON STUDY: Chest x-ray dated 11/24/2016 CT DOSE: 315.38 mGy.cm TECHNIQUE: CT of the thorax was performed from the thoracic inlet to the lung bases. Images are reviewed in the axial, sagittal, and coronal planes. IV contrast was not administered for this examination. FINDINGS: Thyroid: There is an 11 mm calcified right lobe thyroid nodule. Thoracic aorta: There is ectasia of the ascending and descending thoracic aorta. The proximal descending thoracic aorta measures 37 mm in diameter. The a sitting thoracic aorta measures 36 mm. Heart: The heart is borderline enlarged. There are coronary artery calcifications. Lungs and pleural spaces: There are bilateral pleural effusions right greater than left. There is evidence for severe underlying pulmonary emphysema. There is a 1 cm solid right upper lobe pulmonary nodule as visualized in image #[id number]. There is an 8 mm left upper lobe pulmonary nodule as visualized in image #[id number]. Given the adjacent airspace opacities, it is possible that this is inflammatory. Close follow-up will be necessary. There are left lower lobe and left upper lobe airspace opacities, suspicious for a pneumonia. There are airspace opacities within the base of the right upper lobe, possibly atelectatic. There is fluid tracking within the right major fissure. Mediastinum: There is a mildly enlarged pretracheal lymph node measuring 12 mm. Jacquelyn: The hilar structures are difficult to evaluate without intravenous contrast. There is fullness of the left hilum suspicious for adenopathy/consolidation. Axilla: Clear. Upper abdomen: The gallbladder surgically absent Skeletal structures: There are no lytic or blastic osseous lesions. IMPRESSION: 1. Bilateral pleural effusions right greater than left 2. Severe underlying emphysema 3. 1 cm solid right upper lobe pulmonary nodule, suspicious for neoplasm. There is also an 8 mm left upper lobe pulmonary nodule 4. Left upper lobe and left lower lobe airspace opacities suspicious for pneumonia 5. Mildly enlarged pretracheal lymph node 6. Left hilar fullness suspicious for adenopathy/consolidation 7. Thoracic aortic ectasia Please refer to below summary of Fleischner criteria recommendations for follow-up of incidental CT nodules (Giuliano Blanton, Guidelines for management of small pulmonary nodules detected on CT scans: A statement from the Fleischner Society, Radiology 237: [phone].) Low Risk Patient: Minimal or no smoking or other known risk factors for malignancy <=4 mm: No follow-up needed. >4-6 mm: Initial follow-up CT at 12 months; if unchanged, no further follow-up. >6-8 mm: Initial follow-up CT at 6-12 months then at 18-24 months if no change. >8 mm: Follow-up CT at \R\3, 9, 24 months, or PET and/or biopsy. High Risk Patient: History of smoking or other known risk factors <=4 mm: Follow-up at 12 months; if unchanged, no further follow-up. >4-6 mm: Initial follow-up CT at 6-12 months then at 18-24 months if no change. >6-8 mm: Initial follow-up CT at 3-6 months then at 9-12 and 24 months if no change. >8 mm: Same as low risk patient. Note: Nodule size measured as average of length and width. Ground glass or partly solid nodules may require longer follow-up to exclude indolent adenocarcinoma. Electronically signed by: Alberto Stephens M.D. 11/25/2016 12:08 PM Dictated Date/Time: 11/25/2016 11:59 AM
[2016-11-25] MEDS: DOXYCYCLINE IV 100 MG in DEXTROSE 5% 100ML 100 ML IV SCH ×2 (13:42→23:51)
[2016-11-25] MEDS: PIPERACILL/TAZOBAC IV 3.375 GM in DEXTROSE 5% 100ML 100 ML IV SCH (17:27)
[2016-11-25] MEDS ORDERED: GADAVIST IV PRN (18:45)
--- NOTE | 2016-11-25 18:47 | DIAGNOSTIC IMAGING REPORT ---
MRI OF THE BRAIN WITHOUT AND WITH IV CONTRAST CLINICAL HISTORY: Leg weakness. History of brain tumor. COMPARISON STUDY: CT scan dated 11/24/2016, MRI the brain dated 06/13/2016 TECHNIQUE: MRI of the brain was performed from the vertex to the skull base utilizing various T1 and T2 weighted sequences. Following the IV administration of 5 mL of Gadavist contrast, additional enhanced images were obtained. FINDINGS: Sagittal T1, axial diffusion, proton density and T2 weighted axial, coronal FLAIR, and pre and post axial T1-weighted images were acquired. These were supplemented with post gadolinium coronal T1 weighted images. There is an 11 mm ring enhancing mass within the left temporal lobe with surrounding vasogenic edema. There is a 17 mm dural base extra-axial mass in the right middle cranial fossa, consistent with a sphenoid wing meningioma. This mass remains similar in size the prior examination. The left temporal lobe mass and surrounding edema is a new finding when compared the prior June MRI study. The left 24 mm left frontal lobe mass is no longer visualized. The 4 mm enhancing cerebellar lesion is also not visualized with certainty. The left temporal ring-enhancing mass demonstrates restricted water diffusion. There is no evidence of ventricular dilatation. There is been marked reduction in the vasogenic edema within the left frontal lobe. There is new vasogenic edema within the left temporal lobe measuring excess of 3 cm. There are extensive foci of increased T2 and FLAIR signal within the white matter, likely on a small vessel basis. There are no abnormal flow voids. IMPRESSION: 1. Marked reduction in the edema within the left frontal lobe with resolution of the pathologically enhancing left frontal lobe lesion. 2. Interval development of an 11 mm ring enhancing mass within the left temporal lobe with surrounding vasogenic edema. This is consistent with a neoplasm. 3. 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 No evidence of acute or subacute infarction Electronically signed by: Alberto Stephens M.D. 11/25/2016 6:45 PM Dictated Date/Time: 11/25/2016 6:35 PM
[2016-11-25] MEDS: IPRATROPIUM BROMIDE NEB SOLN 0.02% 2.5 ML VIAL INH SCH (19:22)
[2016-11-25] MEDS: LEVALBUTEROL 1.25MG/0.5ML NEB INH SCH (19:22)
[2016-11-25] MEDS: BOOST PLUS VANILLA PO SCH ×2 (20:51)
[2016-11-25] MEDS ORDERED: LEVALBUTEROL/IPRATROPIUM NEB INH SCH (21:00)
[2016-11-25] MEDS ORDERED: GLUCOSE 40% GEL 15 GM TUBE PO PRN (21:15)
[2016-11-25] MEDS ORDERED: DEXTROSE 50% 50 ML SYR IV PRN (21:15)
[2016-11-25] MEDS ORDERED: GLUCAGON FOR INJ 1 MG VIAL SQ PRN (21:15)
[2016-11-25] MEDS ORDERED: GLUCOSE 10 TABS/TUBE PO PRN (21:15)
--- NOTE | 2016-11-25 21:28 | Progress Note ---
Medicine Progress Note Date & Time of Visit: Nov 25, 2016 at 21:14. Subjective sitting up in bedside chair not oriented but calm, cooperative appears comfortable denies dyspnea, cough no abdominal pain denies headache no other pain denies other symptoms Objective Last 8 Hrs Date Time Temp Pulse Resp B/P Pulse Ox O2 Delivery O2 Flow Rate FiO2 11/25/16 20:00 36.4 93 18 133/88 99 2.0 11/25/16 19:25 91 16 96 Nasal Cannula 2.0 11/25/16 16:30 Nasal Cannula 2.0 11/25/16 15:12 36.3 89 16 117/80 93 Room Air Physical Exam: General-not oriented, not in distress, speaks in sentences with no effort Head- atraumatic Eyes- EOMI, anicteric ENT- oropharynx clear Neck- supple, no JVD, no adenopathy Lungs- decreased breath sounds bilateral bases, occasional crackles, no wheeze Heart- regular rhythm; no murmur, normal rate Abdomen- normal bowel sounds, soft, nontender Extremities- grade 1 lower leg edema, no calf tenderness Neuro- alert, not oriented;no gross focal deficits Skin- warm & dry Laboratory Results: Last 24 Hours Test 11/24/16 23:42 11/25/16 04:44 11/25/16 08:01 11/25/16 10:35 Arterial Blood pH 7.48 Arterial Blood Partial Pressure CO2 37 mmHg Arterial Blood Partial Pressure O2 74 mm/Hg Arterial Blood HCO3 27 mmol/L Arterial Blood Oxygen Saturation 94.4 % Arterial Blood Base Excess 3.1 mEq/L Arterial Blood Gas Delivery 2L Jerry Test POS Troponin I 0.122 ng/ml 0.077 ng/ml Transferrin % Saturation % White Blood Count 6.11 K/uL Red Blood Count 4.18 M/uL Hemoglobin 11.1 g/dL Hematocrit 34.5 % Mean Corpuscular Volume 82.5 fL Mean Corpuscular Hemoglobin 26.6 pg Mean Corpuscular Hemoglobin Concent 32.2 g/dl Platelet Count 384 K/uL Mean Platelet Volume 8.2 fL Neutrophils (%) (Auto) 95.5 % Lymphocytes (%) (Auto) 3.1 % Monocytes (%) (Auto) 1.1 % Eosinophils (%) (Auto) 0.0 % Basophils (%) (Auto) 0.0 % Neutrophils # (Auto) 5.83 K/uL Lymphocytes # (Auto) 0.19 K/uL Monocytes # (Auto) 0.07 K/uL Eosinophils # (Auto) 0.00 K/uL Basophils # (Auto) 0.00 K/uL RDW Standard Deviation 57.3 fL RDW Coefficient of Variation 18.8 % Immature Granulocyte % (Auto) 0.3 % Immature Granulocyte # (Auto) 0.02 K/uL Absolute Reticulocyte Count 0.09 10^6/uL Percent Reticulocyte Count 2.2 % Sodium Level 140 mmol/L Potassium Level 3.9 mmol/L Chloride Level 100 mmol/L Carbon Dioxide Level 27 mmol/L Anion Gap 13.0 mmol/L Blood Urea Nitrogen 10 mg/dl Creatinine 0.39 mg/dl Est Creatinine Clear Calc Drug Dose 99.2 ml/min Estimated GFR () 118.2 Estimated GFR (Non- 102.0 BUN/Creatinine Ratio 25.9 Random Glucose 109 mg/dl Calcium Level 8.1 mg/dl Iron Level mcg/dl Total Iron Binding Capacity mcg/dl Transferrin 105 mg/dl Ferritin 275.9 ng/ml Vitamin B12 Level 1658 pg/mL Folate 11.77 ng/mL Total Creatine Kinase 87 U/L Creatine Kinase MB 8.4 ng/ml Creatine Kinase MB Ratio 9.7 Test 11/25/16 11:43 11/25/16 11:49 11/25/16 20:18 11/25/16 21:04 White Blood Count 7.36 K/uL Red Blood Count 4.67 M/uL Hemoglobin 12.4 g/dL Hematocrit 38.7 % Mean Corpuscular Volume 82.9 fL Mean Corpuscular Hemoglobin 26.6 pg Mean Corpuscular Hemoglobin Concent 32.0 g/dl Platelet Count 431 K/uL Mean Platelet Volume 8.2 fL Neutrophils (%) (Auto) 93.0 % Lymphocytes (%) (Auto) 4.2 % Monocytes (%) (Auto) 2.4 % Eosinophils (%) (Auto) 0.0 % Basophils (%) (Auto) 0.0 % Neutrophils # (Auto) 6.84 K/uL Lymphocytes # (Auto) 0.31 K/uL Monocytes # (Auto) 0.18 K/uL Eosinophils # (Auto) 0.00 K/uL Basophils # (Auto) 0.00 K/uL RDW Standard Deviation 56.9 fL RDW Coefficient of Variation 18.7 % Immature Granulocyte % (Auto) 0.4 % Immature Granulocyte # (Auto) 0.03 K/uL Bedside Glucose 124 mg/dl 200 mg/dl Date/Time Source Procedure Growth Status 11/24/16 23:42 Blood Blood Culture Pending Received 11/24/16 23:35 Blood Blood Culture Pending Received 11/25/16 15:15 Nasal MRSA DNA Surveillance Screen - Final Specimen Negative for MRSA by DNA Probe Complete Assessment & Plan 76 year old female with history of St.IV Lung CA, with Brain and Pelvic Mets presenting with leg swelling. HEADACHE, R/O PROGRESSION OF BRAIN METS - Brain MRI pending - Decadron 4mg q6h BSGS Oncologist consulted BILATERAL PLEURAL EFFUSION, POSSIBLE MALIGNANT ETIOLOGY, WITH PNEUMONIA - check CT chest Echo - Lasix + Albumin ordered empiric Zosyn + Doxycycline - Pulmonary consulted ELEVATED TROPONIN with EKG CHANGES - echo pending - Cardiology consulted DYSPHAGIA - Speech Therapy consulted [facility] Soft Diet ABDOMINAL PAIN CT abdomen noted HYPOALBUMINEMIA bsa officer consulted DVT Prophylaxis SCDs due to presence of brain mets Dispo pending Current Inpatient Medications: Current Inpatient Medications Medications (Trade) Dose Ordered Sig/Darcy Route Start Time Stop Time Status Last Admin Dose Admin Acetaminophen (Tylenol Tab) 650 mg Q4H PRN PO 11/24/16 23:00 12/24/16 22:59 Nitroglycerin (Nitrostat Tab) 0.4 mg UD PRN SL 11/24/16 23:00 12/24/16 22:59 Hydromorphone HCl (Dilaudid Inj) 0.5 mg Q3H PRN IV 11/24/16 23:00 12/08/16 22:59 Ondansetron HCl (Zofran Inj) 4 mg Q6H PRN IV 11/24/16 23:00 12/24/16 22:59 Oxycodone/ Acetaminophen (Percocet 5-325mg Tab) 1 tab Q6H PRN PO 11/24/16 23:00 12/08/16 22:59 Escitalopram Oxalate (Lexapro Tab) 20 mg DAILY PO 11/25/16 09:00 12/25/16 08:59 11/25/16 08:17 20 MG Albuterol/ Ipratropium (Duoneb) 3 ml Q2H PRN INH 11/24/16 23:00 12/24/16 22:59 Potassium Chloride (Klor-Con M10) 40 meq DAILY PO 11/25/16 09:00 12/25/16 08:59 11/25/16 08:18 40 MEQ Senna/Docusate Sodium 1 tab 1 tab DAILY PO 11/25/16 09:00 12/25/16 08:59 11/25/16 08:17 1 TAB Dexamethasone Sodium Phosphate 4 mg/Syringe 1 ml @ 1 mls/min Q6H IV 11/25/16 12:00 12/25/16 10:59 11/25/16 17:27 1 MLS/MIN Piperacillin Sod/ Tazobactam Sod 3.375 gm/Dextrose 115 ml @ 28.75 mls/ hr Q8H IV 11/25/16 18:00 12/02/16 17:59 11/25/16 17:27 28.75 MLS/HR Doxycycline Hyclate 100 mg/ Dextrose 110 ml @ 50 mls/hr Q12@0000,1200 IV 11/25/16 12:00 12/02/16 11:59 11/25/16 13:42 50 MLS/HR Furosemide/Syringe (Lasix Inj/ Syringe) 4 ml @ 4 mls/min DAILY IV 11/26/16 09:00 12/26/16 08:59 Piperacillin Sod/ Tazobactam Sod (Consult) 1 ea UD PRN N/A 11/25/16 11:15 12/25/16 11:14 Enteral Nutritional Formula (Boost Plus Vanilla) 1 can BID@1000,1900 PO 11/25/16 19:00 12/25/16 18:59 11/25/16 20:51 1 CAN Metoprolol Tartrate (Lopressor Tab) 12.5 mg BID PO 11/25/16 21:00 12/25/16 20:59 Ipratropium [place] (Atrovent 0.02% 0.5MG/2.5ML Neb) 0.5 mg Q6R INH 11/25/16 21:00 12/25/16 20:59 11/25/16 19:22 0.5 MG Levalbuterol (Xopenex 1.25MG/ 0.5ML Neb) 1.25 mg Q6R INH 11/25/16 21:00 12/25/16 20:59 11/25/16 19:22 1.25 MG Gadobutrol (Gadavist) 5 mmol UD PRN IV 11/25/16 18:45 11/29/16 18:44 Insulin Glargine (Lantus Solostar Pen) 5 unit HS SC 11/26/16 21:00 12/26/16 20:59 UNV Insulin Glargine (Lantus Solostar Pen) 5 unit 2104 ONCE SC 11/25/16 21:04 11/25/16 21:05 UNV Insulin Aspart (novoLOG ASPART) SLIDING SCALE If C... ACHS SC 11/26/16 06:30 12/26/16 06:29 UNV Glucose (Glucose 40% Gel) 15-30 GRAMS 15 GRAMS... UD PRN PO 11/25/16 21:15 12/25/16 21:14 UNV Glucose (Glucose Chew Tab) 4-8 Tablets 4 Tabl... UD PRN PO 11/25/16 21:15 12/25/16 21:14 UNV Dextrose (Dextrose 50% 50ML Syringe) 25-50ML OF 50% DW IV FOR... UD PRN IV 11/25/16 21:15 12/25/16 21:14 UNV Glucagon (Glucagon Inj) 1 mg UD PRN SQ 11/25/16 21:15 12/25/16 21:14 UNV
[2016-11-25] MEDS ORDERED: INSULIN GLARGINE SOLOSTAR 100 UNITS/ML 3 ML PEN SC ONE (21:30)
[2016-11-25] MEDS: METOPROLOL TARTRATE 25 MG TAB PO SCH (22:09)
[2016-11-25] MEDS: INSULIN ASPART 100 UNITS/ML 3 ML PEN SC SCH (22:10)
[2016-11-26] VITALS (12 sets, daily range): BP systolic 105–120; BP diastolic 55–75; PULSE 62–83; TEMP 36–36.5; O2SAT 95–100
--- NOTE | 2016-11-26 01:49 | CARDIOLOGY CONSULTATION ---
DATE OF CONSULTATION: 11/25/2016 REFERRING: Dr. Arteaga. INDICATIONS: Elevated troponin, edema. PRIMARY CARE PHYSICIAN: Dr. Elias. HISTORY OF PRESENT ILLNESS: The patient is a 76-year-old female whose history is notable for stage IV adenocarcinoma with pulmonary, pelvic and cranial metastases, having been treated extensively for above complaints of surgical and radiation interventions. She has been on high dose corticosteroids since fall and presented for hospitalization on 11/24/2016 with symptoms predominantly of increasing leg edema, headache and marked weakness and fatigue, intermittent confusion. The patient has been unstable on her feet and has been unable to ambulate on admission. Examination demonstrated significant lower extremity edema and increased interstitial markings in the chest as well as bilateral pleural effusions. Troponin as part of laboratory testing demonstrated mild persistent elevation. She is referred now for further evaluation. The patient denies any episodes of chest pain or discomfort. Has been mildly dyspneic in the past and had been on oxygen for recent upper respiratory infection and cough in the last month's time. Has not been using oxygen recently. Notes no overt fevers, notes no headache above or beyond a chronic ache as described. Notes no bleeding difficulties, melena, hematochezia, dysuria or hematuria. Appetite has been poor. Weight has been gradually trending downward. ALLERGIES: BLUE DYES. No drug allergies. MEDICATIONS PRIOR TO HOSPITALIZATION: Lexapro 20 mg p.o. daily, furosemide 20 mg p.o. daily, Zofran 8 mg p.o. daily, oxygen 2 liters nasal cannula intermittent use, potassium chloride 10 mEq p.o. daily, tramadol 50 mg q. 4 hours p.r.n. PAST SURGICAL HISTORY: As noted, cholecystectomy, prior left breast surgery, hysterectomy, gamma knife surgery for intracranial mass July 2016. FAMILY HISTORY: Noncontributory. SOCIAL HISTORY: The patient is cared for by family. She is a nonsmoker and nondrinker currently. PHYSICAL EXAMINATION: GENERAL: The patient is a chronically ill appearing, cachectic female denying any current complaints. She is wearing oxygen by nasal cannula. VITAL SIGNS: Heart rate is 92, blood pressure is 115/82, O2 saturations 96% on 2 liters nasal cannula. Weight is 51 kilos. HEENT: Normocephalic and atraumatic. NECK: Thin. There is no distinct jugular venous distention. LUNGS: Reveal fine crackles basilar. CARDIOVASCULAR: Regular. There is no S3 gallop. ABDOMEN: Soft, nontender. EXTREMITIES: Reveal 2-3+ edema to the knees. NEUROLOGIC: The patient answers some questions with mild confusion. DATA: EKG on presentation revealed sinus rhythm with low voltage QRS, poor R-wave progression across the anterior precordial leads, nonspecific ST segment changes. Echocardiogram this morning demonstrates moderate to severe left ventricular hypertrophy with small left ventricular cavity size and hyperdynamic LV function, grade 1 diastolic dysfunction and no wall motion abnormalities. White cell count 7.3, hemoglobin is 12.4. Sodium is 140, potassium is 3.9, chloride is 100, bicarbonate is 27, BUN 10, creatinine 0.39. Transferrin level is 105. Albumin level is 1.8. Chest x-ray reveals diffuse increased interstitial markings. Small to moderate bilateral pleural effusions, left greater than right. Right basilar and left upper infiltrates. A lower extremity ultrasound was negative for deep venous thromboses. IMPRESSION: A chronically ill 76-year-old female admitted with gradual decline, signs and symptoms of worsening edema, possible increased intracranial pressure with headaches and mild confusion. She has stage IV metastatic carcinoma with metastases to pelvis, lung and brain. Troponins done and evaluation of course demonstrated mild persistent elevation. Echocardiogram does not suggest acute ischemic etiology with hyperdynamic LV function and no wall motion abnormalities. RECOMMENDATIONS: Overall, edema is being addressed with IV Lasix and albumin. This may help with the patient's poor protein levels and low vascular turgor a strong issue , support stockings are suggested. Given very small left ventricular cavity size and diastolic dysfunction, very low dose beta wanda may be helpful, though if patient develops any signs or symptoms of intolerance would stop. Overall prognosis limited. MTDD
[2016-11-26] MEDS: LEVALBUTEROL 1.25MG/0.5ML NEB INH SCH ×4 (02:27→20:14)
[2016-11-26] MEDS: IPRATROPIUM BROMIDE NEB SOLN 0.02% 2.5 ML VIAL INH SCH ×4 (02:27→20:14)
[2016-11-26] MEDS: PIPERACILL/TAZOBAC IV 3.375 GM in DEXTROSE 5% 100ML 100 ML IV SCH ×3 (02:35→17:48)
[2016-11-26] MEDS: DEXAMETHASONE INJ 4 MG in SYRINGE 0 ML IV SCH ×4 (06:19→23:59)
[2016-11-26 07:09] LABS: ESTIMATED AVERAGE GLUCOSE 88 mg/dl; HA1C FLAG Normal (Normal)
[2016-11-26 07:50] LABS: BUN/CREATININE RATIO 23.4 (10-20); CALCIUM 8.2 mg/dl (8.5-10.1); CREATININE 0.7 mg/dl (0.60-1.20); MAGNESIUM 2.1 mg/dl (1.8-2.4); POTASSIUM 3.7 mmol/L (3.5-5.1)
[2016-11-26] MEDS: ESCITALOPRAM OXALATE 10 MG TAB PO SCH (08:06)
[2016-11-26] MEDS: METOPROLOL TARTRATE 25 MG TAB PO SCH ×2 (08:06→21:02)
[2016-11-26] MEDS: DOCUSATE SODIUM/SENNA 50/8.6MG TAB PO SCH (08:06)
[2016-11-26] MEDS: POTASSIUM CHLORIDE 10 MEQ TABCR PO SCH (08:07)
[2016-11-26] MEDS: INSULIN ASPART 100 UNITS/ML 3 ML PEN SC SCH ×4 (08:10→21:00)
[2016-11-26] MEDS ORDERED: FUROSEMIDE INJ 40 MG in SYRINGE 0 ML IV SCH (09:00)
--- NOTE | 2016-11-26 09:04 | Clinical Documentation Query ---
CLINICAL DOCUMENTATION QUERY Dr. DE OLIVEIRA, In your clinical opinion is this patient being managed for: ( X ) new cerebral/vasogenic edema L temporal lobe ( ) Other explanation of clinical findings (Please Explain) ( ) Unable to determine (Please Define) ( ) Need to Discuss ( ) Not Agree The medical record reflects the following clinical findings, treatment, and risk factors. Clinical Indicators: 76 yo female presenting with L sided leg pain and headache. MRI showed interval development of an 11 mm ring enhancing mass within the left temporal lobe with surrounding vasogenic edema. Treatment: MRI brain, IV decadron, hem/onc consult Risk Factors: stage IV lung cancer with known brain mets Please clarify and document your clinical opinion in the progress notes and discharge summary. Terms such as "probable", "suspected", "likely", "questionable", "possible", or "still to be ruled out" are acceptable. IF IN AGREEMENT, YOU MUST DOCUMENT ABOVE DIAGNOSTIC STATEMENT IN DAILY PROGRESS NOTES AND DISCHARGE SUMMARY. This document is not part of the patient's record. Thank You, Sanam Romeo RN [phone]
[2016-11-26] MEDS: BOOST PLUS VANILLA PO SCH ×4 (09:47→20:07)
--- NOTE | 2016-11-26 10:10 | PULMONARY CONSULTATION ---
DATE OF CONSULTATION: 11/26/2016 TIME: 9:15 a.m. REPORT OF CONSULTATION: The patient was seen in room 278, bed 1. HISTORY OF PRESENT ILLNESS: She is a 76-year-old female who was admitted on November 24 complaining of left leg pain, swelling of both legs, confusion, and left-sided abdominal pain. The patient is a very poor historian. She is also very confused. She denies any shortness of breath at all. She denies any cough, sputum production or hemoptysis. She says that the leg pain has resolved, although she is very itchy in the area of the left leg. She denies abdominal pain. She acknowledges the swelling, but she thinks it is better. As noted, the patient is confused and disoriented. From a pulmonary perspective, her history is that she had a left lung carcinoma diagnosed in December of 2015. There apparently was metastatic disease to the mediastinum and possibly the hilum. She also has had a brain metastasis and she has had mets to the pelvic lymph nodes. She apparently has had chemotherapy and radiation therapy. She has had [employer] therapy. This information is obtained from reviewing records as the patient cannot give me much history. She recently was started on home oxygen. This is despite the fact she denies any shortness of breath. The patient has had other malignancies as well. There is a reported history of endometrial carcinoma and she also had left breast cancer diagnosed in 2008. She was treated with lumpectomy and radiation. The patient is an ex-smoker. She could not tell me how long she smoked or when she quit. I do not know if she drinks alcohol or not. FAMILY HISTORY: As per review of the records is positive for cancer. I do not have any more specific than that. PAST SURGICAL HISTORY: Cholecystectomy, hysterectomy, left breast biopsy, bronchoscopy December 2015 done at [facility]. ALLERGIES: LISTED ALLERGY TO BLUE DYE. MEDICATIONS AT HOME: 1. Escitalopram 20 mg daily. 2. Furosemide 20 mg daily. 3. Ondansetron 8 mg p.r.n. 4. O2 2 liters. 5. Potassium 10 mEq daily. 6. Tramadol 50 mg q. 4 hours p.r.n. REVIEW OF SYSTEMS: Essentially negative as per the patient, but as noted she is not a good historian. The one thing she does complain about severely is the itching involving especially the left leg. PHYSICAL EXAMINATION: GENERAL: The patient is a very pleasant but confused 76-year-old female who was cooperative. Her speech was clear. She did not know the year or the month. She did know she was in the hospital. HEENT: Her pupils were reactive to light. The nares were clear. The mouth exam was unremarkable. She is slender. VITAL SIGNS: Her BMI is only 19.2 with a weight of 53.9 kilograms. The patient is afebrile with a temperature of 36.4. She has not had any significant temperature elevations since admission. Rate is 67 per minute. Blood pressure is 105/55. Respiratory rate was 20 breaths per minute and not labored. Saturation is 100% on 2 liter nasal cannula. NECK: Palpation of the neck reveals no lymph nodes or masses. CHEST: Normal expansion. HEART: The rhythm is regular. There was a systolic murmur grade 3/6 heard best along the left sternal border and more lateral. LUNGS: Rales are heard throughout the left lung and to a lesser degree on the right. Breath sounds are somewhat diminished at both bases. There was dullness to percussion of the right base. There was no accessory muscle use. ABDOMEN: Soft. Bowel sounds were present and were normal. There was no tenderness to palpation or definite mass. EXTREMITIES: Revealed +3 edema from the mid tibia on downward. There was no cyanosis or clubbing. LABORATORY DATA: CBC shows a white count of 7.36 as of yesterday. The highest white count was on admission 11.92. Hemoglobin is 12.4. Platelets are 431,000. INR was 1.1 and PTT was 32.6. Blood gas done at the time of admission showed a pH of 7.48 with a pCO2 of 37 and a pO2 of 74 on 2 liters. Electrolytes show sodium 140, potassium 3.7, chloride 99, bicarbonate 30. The BUN is 16 with a creatinine of 0.7. Blood sugar this morning was 194. Calcium was 8.2. The ProBNP was 4358. Troponins were elevated a maximum of 0.162. TSH was 1.75. Total protein was 5.0, which would be low. Albumin was 1.8, which is also low. AST was normal at 18 and ALT was 13. Alkaline phosphatase was 67. IMAGING DATA: Doppler ultrasound of both lower extremities showed no evidence of DVT. CAT scan of the chest showed bilateral pleural effusions, right greater than left. There is fluid in the major fissure on the right. Severe emphysema was noted. There is a 1 cm solid nodule in the right upper lobe that is very suspicious for neoplasm. There is a less dense 8 mm left upper lobe nodule. There are alveolar infiltrates in the left upper and lower lobes which would be suspicious for pneumonia. The interstitial markings are more pronounced on the left than on the right. Cannot exclude lymphangitic spread of tumor in this finding. There was a left hilar fullness suggestive for adenopathy. Mildly enlarged pretracheal lymph node was noted at 12 mm. X-ray of the hip and pelvis showed no evidence of fracture. Abdominal CT showed anasarca with extensive sigmoid diverticulosis. There was a decrease in the left external iliac lymphadenopathy since PET scan of 08/08/2016. Brain MRI shows evidence of a reduction in edema of the left frontal lobe with resolution of the pathologically enlarged left frontal lobe lesion. However, there is an interval development of 11 mm ring enhancing mass within the left temporal lobe with surrounding vasogenic edema. 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 IMPRESSION: 1. Lung carcinoma -- stage IV with metastases to mediastinum, pelvis, and brain. 2. Pleural effusions, right greater than left. 3. Left lung infiltrate suspicious for pneumonia -- cannot exclude lymphangitic spread of tumor. 4. Emphysema. 5. Right upper lobe nodule suspicious for metastatic lesion. COMMENTS AND RECOMMENDATIONS: The patient obviously has very extensive metastatic disease. Her breathing seems quite stable all things considered. Her left lung infiltrates are noted which may be pneumonia. However, she clinically does not act like typical pneumonia. She has not been having cough, sputum production, fevers, significant leukocytosis, etc. There is a possibility this represents malignancy as well. Nonetheless, it makes sense to treat anything that might be potentially reversible and thus I agree with the antibiotic coverage which currently includes Zosyn and doxycycline. The patient is on Decadron for the brain metastasis. She is on respiratory treatments which I concur with. I am doubtful she will bring up any sputum to culture. Regarding the effusions, I do not believe they need thoracentesis at present. A fair amount of fluid is located within the fissure on the right. This obviously would not be accessible. She is receiving diuretic therapy, which I agree with. It could also be that her low albumin and protein are contributing to the effusions and the edema. I believe these issues are already being addressed. The patient unfortunately has a very poor prognosis. Thank you very much for asking me to assist in her care. POLY
[2016-11-26] MEDS ORDERED: ALBUMIN HUMAN 25% 12.5 GM/50 ML VIAL IV SCH (11:00)
--- NOTE | 2016-11-26 11:13 | Progress Note ---
Medicine Progress Note Date & Time of Visit: Nov 26, 2016 at 11:00. Subjective patient seen resting in bedside chair appears more alert, brighter, conversant, still pleasantly confused denies shortness of breath, cough, chills no abdominal pain, nausea no leg pain denies other symptoms Objective Last 8 Hrs Date Time Temp Pulse Resp B/P Pulse Ox O2 Delivery O2 Flow Rate FiO2 11/26/16 08:45 Nasal Cannula 2.0 11/26/16 07:54 36.4 64 20 105/55 100 Nasal Cannula 2.0 11/26/16 07:14 63 16 99 Nasal Cannula 2.0 11/26/16 04:00 Nasal Cannula 2.0 11/26/16 03:12 36.3 73 16 118/73 99 Nasal Cannula 2.0 Physical Exam: General-not oriented, not in distress, speaks in sentences with no effort, no accessory muscle use Eyes- anicteric Neck- supple, no JVD, no adenopathy Lungs- decreased breath sounds bilateral bases, mild crackles, no wheeze Heart- regular rhythm; no murmur, normal rate Abdomen- normal bowel sounds, soft, nontender Extremities- grade 1 lower leg edema, no erythema/warmth; no calf tenderness Neuro- alert, not oriented;no gross focal deficits Skin- warm & dry Laboratory Results: Last 24 Hours Test 11/25/16 11:43 11/25/16 11:49 11/25/16 16:21 11/25/16 20:18 White Blood Count 7.36 K/uL Red Blood Count 4.67 M/uL Hemoglobin 12.4 g/dL Hematocrit 38.7 % Mean Corpuscular Volume 82.9 fL Mean Corpuscular Hemoglobin 26.6 pg Mean Corpuscular Hemoglobin Concent 32.0 g/dl Platelet Count 431 K/uL Mean Platelet Volume 8.2 fL Neutrophils (%) (Auto) 93.0 % Lymphocytes (%) (Auto) 4.2 % Monocytes (%) (Auto) 2.4 % Eosinophils (%) (Auto) 0.0 % Basophils (%) (Auto) 0.0 % Neutrophils # (Auto) 6.84 K/uL Lymphocytes # (Auto) 0.31 K/uL Monocytes # (Auto) 0.18 K/uL Eosinophils # (Auto) 0.00 K/uL Basophils # (Auto) 0.00 K/uL RDW Standard Deviation 56.9 fL RDW Coefficient of Variation 18.7 % Immature Granulocyte % (Auto) 0.4 % Immature Granulocyte # (Auto) 0.03 K/uL Estimated Average Glucose 88 mg/dl Hemoglobin A1c 4.7 % Bedside Glucose 124 mg/dl 121 mg/dl 200 mg/dl Test 11/26/16 06:47 11/26/16 07:39 Sodium Level 140 mmol/L Potassium Level 3.7 mmol/L Chloride Level 99 mmol/L Carbon Dioxide Level 30 mmol/L Anion Gap 11.0 mmol/L Blood Urea Nitrogen 16 mg/dl Creatinine 0.70 mg/dl Est Creatinine Clear Calc Drug Dose 58.2 ml/min Estimated GFR () 97.5 Estimated GFR (Non- 84.2 BUN/Creatinine Ratio 23.4 Random Glucose 175 mg/dl Calcium Level 8.2 mg/dl Magnesium Level 2.1 mg/dl Bedside Glucose 194 mg/dl Date/Time Source Procedure Growth Status 11/25/16 15:15 Nasal MRSA DNA Surveillance Screen - Final Specimen Negative for MRSA by DNA Probe Complete Assessment & Plan 76 year old female with history of [facility] Lung CA, with Brain and Pelvic Mets presenting with leg swelling. HEADACHE, NEW BRAIN LESION (LEFT TEMPORAL LOBE) with VASOGENIC EDEMA - Brain MRI : IMPRESSION: 1. Marked reduction in the edema within the left frontal lobe with resolution of the pathologically enhancing left frontal lobe lesion. 2. Interval development of an 11 mm ring enhancing mass within the left temporal lobe with surrounding vasogenic edema. This is consistent with a neoplasm. 3. 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 No evidence of acute or subacute infarction - Decadron 4mg q6h started - no headache or new focal neuro deficits today continue Decadron BSGS, PRN insulin Oncologist consulted- awaiting recommendations BILATERAL PLEURAL EFFUSION, POSSIBLE MALIGNANT ETIOLOGY, WITH PNEUMONIA - CT chest: IMPRESSION: 1. Bilateral pleural effusions right greater than left 2. Severe underlying emphysema 3. 1 cm solid right upper lobe pulmonary nodule, suspicious for neoplasm. There is also an 8 mm left upper lobe pulmonary nodule 4. Left upper lobe and left lower lobe airspace opacities suspicious for pneumonia 5. Mildly enlarged pretracheal lymph node 6. Left hilar fullness suspicious for adenopathy/consolidation 7. Thoracic aortic ectasia Echo: -- Conclusions -- * The left ventricular cavity is small. * There is severe concentric left ventricular hypertrophy. * The left ventricle is hyperdynamic. * The left ventricular wall motion is normal. * Ejection Fraction = >70 %. * Grade I diastolic dysfunction, (abnormal relaxation pattern). * Aortic valve sclerosis mild, without significant aortic valvular stenosis. - stable on 2 liters nasal cannula repeat CXR today - Lasix + Albumin ordered day 2 empiric Zosyn + Doxycycline IV day 2 Nebs - Pulmonary consulted, thoracentesis not recommended at this time - monitor response to diuretics and antibiotics appreciate Pulm input ELEVATED TROPONIN with EKG CHANGES - echo: no wall motion abnormalities - no chest pain - Cardiology consulted Metoprolol added , tolerating well no further interventions at this time DYSPHAGIA - Speech Therapy consulted [facility] Soft Diet ABDOMINAL PAIN, Resolved CT abdomen noted: 1. Study significantly compromised given the lack of IV and oral contrast. 2. Partially visualized moderate bilateral pleural effusions, right larger than left with associated airspace opacities which could reflect atelectasis or consolidation. 3. Generalized anasarca. 4. Extensive sigmoid diverticulosis. The sensitivity for detection of acute diverticulitis is significantly diminished on this exam but no convincing evidence for acute diverticulitis. Mild multifocal nonspecific colonic wall thickening may reflect colitis or be due to underdistention. 5. Interval decrease in left external iliac lymphadenopathy since PET/CT of August 08, 2016. 6. Moderate amount of stool within the rectum. HYPOALBUMINEMIA contributing to anasarca prop and effects designer consulted DVT Prophylaxis SCDs due to presence of brain mets Dispo pending PT/OT eval referral to [facility] noted Current Inpatient Medications: Current Inpatient Medications Medications (Trade) Dose Ordered Sig/Darcy Route Start Time Stop Time Status Last Admin Dose Admin Acetaminophen (Tylenol Tab) 650 mg Q4H PRN PO 11/24/16 23:00 12/24/16 22:59 Nitroglycerin (Nitrostat Tab) 0.4 mg UD PRN SL 11/24/16 23:00 12/24/16 22:59 Hydromorphone HCl (Dilaudid Inj) 0.5 mg Q3H PRN IV 11/24/16 23:00 12/08/16 22:59 Ondansetron HCl (Zofran Inj) 4 mg Q6H PRN IV 11/24/16 23:00 12/24/16 22:59 Oxycodone/ Acetaminophen (Percocet 5-325mg Tab) 1 tab Q6H PRN PO 11/24/16 23:00 12/08/16 22:59 Escitalopram Oxalate (Lexapro Tab) 20 mg DAILY PO 11/25/16 09:00 12/25/16 08:59 11/26/16 08:06 20 MG Albuterol/ Ipratropium (Duoneb) 3 ml Q2H PRN INH 11/24/16 23:00 12/24/16 22:59 Potassium Chloride (Klor-Con M10) 40 meq DAILY PO 11/25/16 09:00 12/25/16 08:59 11/26/16 08:07 40 MEQ Senna/Docusate Sodium 1 tab 1 tab DAILY PO 11/25/16 09:00 12/25/16 08:59 11/26/16 08:06 1 TAB Dexamethasone Sodium Phosphate 4 mg/Syringe 1 ml @ 1 mls/min Q6H IV 11/25/16 12:00 12/25/16 10:59 11/26/16 06:19 1 MLS/MIN Piperacillin Sod/ Tazobactam Sod 3.375 gm/Dextrose 115 ml @ 28.75 mls/ hr Q8H IV 11/25/16 18:00 12/02/16 17:59 11/26/16 09:46 28.75 MLS/HR Doxycycline Hyclate/Dextrose (Vibramycin IV/ D5 100ml) 110 ml @ 50 mls/hr Q12@0000,1200 IV 11/25/16 12:00 12/02/16 11:59 11/25/16 23:51 50 MLS/HR Piperacillin Sod/ Tazobactam Sod (Consult) 1 ea UD PRN N/A 11/25/16 11:15 12/25/16 11:14 Enteral Nutritional Formula (Boost Plus Vanilla) 1 can BID@1000,1900 PO 11/25/16 19:00 12/25/16 18:59 11/26/16 09:47 1 CAN Metoprolol Tartrate (Lopressor Tab) 12.5 mg BID PO 11/25/16 21:00 12/25/16 20:59 11/25/16 22:09 12.5 MG Ipratropium Garita (Atrovent 0.02% 0.5MG/2.5ML Neb) 0.5 mg Q6R INH 11/25/16 21:00 12/25/16 20:59 11/26/16 07:14 0.5 MG Levalbuterol (Xopenex 1.25MG/ 0.5ML Neb) 1.25 mg Q6R INH 11/25/16 21:00 12/25/16 20:59 11/26/16 07:14 1.25 MG Gadobutrol (Gadavist) 5 mmol UD PRN IV 11/25/16 18:45 11/29/16 18:44 Insulin Glargine (Lantus Solostar Pen) 5 unit HS SC 11/26/16 21:00 12/26/16 20:59 Insulin Aspart (novoLOG ASPART) SLIDING SCALE If C... ACHS SC 11/25/16 21:30 12/25/16 21:29 11/26/16 08:10 1 UNITS Glucose (Glucose 40% Gel) 15-30 GRAMS 15 GRAMS... UD PRN PO 11/25/16 21:15 12/25/16 21:14 Glucose (Glucose Chew Tab) 4-8 Tablets 4 Tabl... UD PRN PO 11/25/16 21:15 12/25/16 21:14 Dextrose (Dextrose 50% 50ML Syringe) 25-50ML OF 50% DW IV FOR... UD PRN IV 11/25/16 21:15 12/25/16 21:14 Glucagon (Glucagon Inj) 1 mg UD PRN SQ 11/25/16 21:15 12/25/16 21:14
--- NOTE | 2016-11-26 11:22 | DIAGNOSTIC IMAGING REPORT ---
CHEST ONE VIEW PORTABLE CLINICAL HISTORY: Pleural effusion. Follow-up study. Respiratory failure. COMPARISON STUDY: 11/24/2016 FINDINGS: The cardiac and mediastinal contours remain stable. There are persistent bilateral pleural effusions. There are improving bilateral interstitial opacities. There is a persistent more focal area of airspace consolidation within the left lower lobe.[ IMPRESSION: 1. Improving bilateral interstitial opacities/edema 2. Persistent more focal left basilar airspace opacity 3. Persistent bilateral pleural effusions Electronically signed by: Alberto Stephens M.D. 11/26/2016 11:20 AM Dictated Date/Time: 11/26/2016 11:18 AM
--- NOTE | 2016-11-26 14:31 | DIAGNOSTIC IMAGING REPORT ---
VIDEO SWALLOW HISTORY: Pneumonia. Possible aspiration TECHNIQUE: Video fluoroscopic evaluation of swallowing was performed in the AP and lateral projections by the speech pathology staff. The patient is fed thin liquids, nectar thick liquids, and pudding FLUOROSCOPY TIME: 2.2 minutes. COMPARISON STUDY: None. FINDINGS: There was minimal movement of the tongue base and epiglottis. When swallowing thin liquids, there is aspiration and penetration. When swallowing nectar thick liquids, there is evidence for aspiration and penetration. When swallowing pudding, there is evidence for aspiration with heavy residue. IMPRESSION: 1. Aspiration of thin liquids, nectar thick liquids and pudding. 2. Please see the speech pathologist report for detailed findings and recommendations. Electronically signed by: Alberto Stephens M.D. 11/26/2016 2:29 PM Dictated Date/Time: 11/26/2016 2:27 PM
[2016-11-26] MEDS: DOXYCYCLINE IV 100 MG in DEXTROSE 5% 100ML 100 ML IV SCH ×2 (14:42→23:59)
--- NOTE | 2016-11-26 15:46 | Medical Consult ---
Consultation Date of Consultation: Nov 26, 2016. 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 Adan, hospitalized acutely 2 days ago for generalized weakness. She is s/p chemoradiation with Taxol/ carboplatin from 01/20/2016 to 02/17/2016 for initially locally advanced disease. She subsequently developed metastasis to the brain identified in June 2016 with a left frontotemporal lobe mass and a 4 mm mass in the left cerebellum. She was started on steroids, was not a surgical candidate, and underwent gamma knife radiotherapy at [facility] by Dr. Cooney. She subsequently developed pelvic adenopathy in 08/2016, biopsy-proven for metastatic lung cancer, and completed palliative RT to the pelvis in 10/2016. Her states that she was unable to get out of bed aside from eating or using the bathroom the day or two leading up to this admission. He was concerned about her so he brought her to the emergency room on 11/24/16. Labs showed an elevated BNP at 4500. Chest x-ray showed some congestion. A CT of the head did not show acute intracranial hemorrhage ; decrease edema of the anterior left temporal lobe since June 2016 MRI, suggesting treatment response. However, edema on posterior left temporal lobe has increased since prior MRI, additional lesion versus post treatment change. A CT of the abdomen and pelvis revealed decrease in left external iliac lymphadenopathy compared to PET-CT from 08/23/2016. A lower extremity ultrasound was negative for DVT. She was ultimately admitted to [facility] due to symptoms of generalized weakness, decrease in mental status in the setting of suspected recurrent brain metastasis. A follow-up brain MRI from yesterday: Reveals 11 mm ring-enhancing mass within the left temporal lobe with surrounding vasogenic edema (3 cm), new finding when compared to June MRI. 17 mm dural-based extra-axial mass in the right middle cranial fossa, consistent with this being sphenoid wing meningioma. This has not changed in size. Left 24 mm left frontal lobe mass no longer visualized. 4 mm enhancing cerebellar lesion also not visualized with certainty. A follow- up CT chest from yesterday: Bilateral pleural effusions, right greater than left. Evidence for severe underlying pulmonary emphysema. 1 cm solid right upper lobe pulmonary nodule suspicious for neoplasm; 8 mm left upper lobe pulmonary nodule. Gala possibly may represent inflammation. There is a left lower lobe and left upper lobe airspace opacity, suspicious for pneumonia. Airspace opacities within the base of the right upper lobe possibly atelectatic. Mildly enlarged pretracheal lymph node measuring 12 mm. Fullness of left dinh suspicious for adenopathy/consolidation. No lytic or blastic osseous lesions. Cardiology consult was obtained. Dr. Garcia states that IV Lasix will be addressing the edema and albumin. Support stockings were recommended. Echocardiogram revealed diastolic dysfunction, he recommended low-dose beta- wanda-metoprolol started. Pulmonology was consulted; thoracentesis not recommended at this time. Patient is on empiric Zosyn and doxycycline for possible pneumonia as seen on CT chest from yesterday. Additional history obtained from the patient at bedside. the patient denies dizziness, headache or blurred vision. She reports significant edema of her lower legs bilaterally, which has been chronic, but worse more recently. She has not had cough, dyspnea. She was treated more recently for bronchitis last week by her PCP. She does have anorexia with only eating small meals. She has not had abdominal pain or bowel issues. She did have 3-4 be bowel movements today, per certified nursing assistant. classroom aide and RN both believe patient seems more confused today. Her was at the bedside ; he called their daughter who I spoke with at the time of the visit. Past Medical/Surgical History Medical Problems: (1) Anemia Status: Acute (2) Bilateral pleural effusion Status: Acute (3) Brain metastases Status: Acute (4) Failure of outpatient treatment Status: Acute (5) Hypocalcemia Status: Acute (6) Left leg pain Status: Acute (7) Left sided abdominal pain Status: Acute (8) Pneumonia Status: Acute (9) Vasogenic brain edema Status: Acute Family History Patient reports no known family medical history. Social History Smoking Status: Former Smoker Drug Use: none Marital Status: Housing Status: lives with significant other Occupation Status: retired Allergies Coded Allergies: NO KNOWN DRUG ALLERGIES (Verified Allergy, Mild, ., 11/24/16) Blue Dyes (Parenteral) (Verified Allergy, Unknown, hot flash, 06/13/16) states had blue dye for test in the 1970s and became very hot as soon as administered. Current Inpatient Medications Current Inpatient Medications Medications (Trade) Dose Ordered Sig/Darcy Route Start Time Stop Time Status Last Admin Dose Admin Acetaminophen (Tylenol Tab) 650 mg Q4H PRN PO 11/24/16 23:00 12/24/16 22:59 Nitroglycerin (Nitrostat Tab) 0.4 mg UD PRN SL 11/24/16 23:00 12/24/16 22:59 Hydromorphone HCl (Dilaudid Inj) 0.5 mg Q3H PRN IV 11/24/16 23:00 12/08/16 22:59 Ondansetron HCl (Zofran Inj) 4 mg Q6H PRN IV 11/24/16 23:00 12/24/16 22:59 Oxycodone/ Acetaminophen (Percocet 5-325mg Tab) 1 tab Q6H PRN PO 11/24/16 23:00 12/08/16 22:59 11/26/16 14:25 1 TAB Escitalopram Oxalate (Lexapro Tab) 20 mg DAILY PO 11/25/16 09:00 12/25/16 08:59 11/26/16 08:06 20 MG Albuterol/ Ipratropium (Duoneb) 3 ml Q2H PRN INH 11/24/16 23:00 12/24/16 22:59 Potassium Chloride (Klor-Con M10) 40 meq DAILY PO 11/25/16 09:00 12/25/16 08:59 11/26/16 08:07 40 MEQ Senna/Docusate Sodium 1 tab 1 tab DAILY PO 11/25/16 09:00 12/25/16 08:59 11/26/16 08:06 1 TAB Dexamethasone Sodium Phosphate 4 mg/Syringe 1 ml @ 1 mls/min Q6H IV 11/25/16 12:00 12/25/16 10:59 11/26/16 12:03 1 MLS/MIN Piperacillin Sod/ Tazobactam Sod 3.375 gm/Dextrose 115 ml @ 28.75 mls/ hr Q8H IV 11/25/16 18:00 12/02/16 17:59 11/26/16 09:46 28.75 MLS/HR Doxycycline Hyclate/Dextrose (Vibramycin IV/ D5 100ml) 110 ml @ 50 mls/hr Q12@0000,1200 IV 11/25/16 12:00 12/02/16 11:59 11/26/16 14:42 50 MLS/HR Piperacillin Sod/ Tazobactam Sod (Consult) 1 ea UD PRN N/A 11/25/16 11:15 12/25/16 11:14 Enteral Nutritional Formula (Boost Plus Vanilla) 1 can BID@1000,1900 PO 11/25/16 19:00 12/25/16 18:59 11/26/16 09:47 1 CAN Metoprolol Tartrate (Lopressor Tab) 12.5 mg BID PO 11/25/16 21:00 12/25/16 20:59 11/25/16 22:09 12.5 MG Ipratropium [place] (Atrovent 0.02% 0.5MG/2.5ML Neb) 0.5 mg Q6R INH 11/25/16 21:00 12/25/16 20:59 11/26/16 07:14 0.5 MG Levalbuterol (Xopenex 1.25MG/ 0.5ML Neb) 1.25 mg Q6R INH 11/25/16 21:00 12/25/16 20:59 11/26/16 07:14 1.25 MG Gadobutrol (Gadavist) 5 mmol UD PRN IV 11/25/16 18:45 11/29/16 18:44 Insulin Glargine (Lantus Solostar Pen) 5 unit HS SC 11/26/16 21:00 12/26/16 20:59 Insulin Aspart (novoLOG ASPART) SLIDING SCALE If C... ACHS SC 11/25/16 21:30 12/25/16 21:29 11/26/16 08:10 1 UNITS Glucose (Glucose 40% Gel) 15-30 GRAMS 15 GRAMS... UD PRN PO 11/25/16 21:15 12/25/16 21:14 Glucose (Glucose Chew Tab) 4-8 Tablets 4 Tabl... UD PRN PO 11/25/16 21:15 12/25/16 21:14 Dextrose (Dextrose 50% 50ML Syringe) 25-50ML OF 50% DW IV FOR... UD PRN IV 11/25/16 21:15 12/25/16 21:14 Glucagon (Glucagon Inj) 1 mg UD PRN SQ 11/25/16 21:15 12/25/16 21:14 Albumin Human (Albumin 25%) 12.5 gm TODAY@1100 IV 11/26/16 11:00 11/26/16 16:00 11/26/16 13:46 12.5 GM Review of Systems Constitutional: + weakness, No chills, No fever, No sweats Eyes: No diplopia, No worsening of vision ENT: No hearing loss Respiratory: No cough, No shortness of breath, No sputum, No wheezing Cardiovascular: + edema, No chest pain Abdomen: + problem reported (+ anorexia), No constipation, No diarrhea, No nausea, No pain, No vomiting Genitourinary - Female: + urinary incontinence (urge) Neurologic: + balance problems, + memory loss, + weakness, No vertigo Hematologic / Lymphatic: No abnormal bleeding/bruising, No clotting problems Physical Exam Date Time Temp Pulse Resp B/P Pulse Ox O2 Delivery O2 Flow Rate FiO2 11/26/16 12:45 Nasal Cannula 2.0 11/26/16 12:10 36.3 71 19 116/68 99 Nasal Cannula 2.0 11/26/16 09:43 72 99 11/26/16 08:45 Nasal Cannula 2.0 11/26/16 07:54 36.4 64 20 105/55 100 Nasal Cannula 2.0 11/26/16 07:14 63 16 99 Nasal Cannula 2.0 11/26/16 04:00 Nasal Cannula 2.0 11/26/16 03:12 36.3 73 16 118/73 99 Nasal Cannula 2.0 11/26/16 02:27 72 16 98 Nasal Cannula 2.0 11/26/16 00:02 36.5 83 16 108/71 97 Nasal Cannula 2.0 11/26/16 00:00 Nasal Cannula 2.0 11/25/16 20:00 36.4 93 18 133/88 99 2.0 11/25/16 20:00 Nasal Cannula 2.0 11/25/16 19:25 91 16 96 Nasal Cannula 2.0 11/25/16 16:30 Nasal Cannula 2.0 11/25/16 15:12 36.3 89 16 117/80 93 Room Air General Appearance: no apparent distress, + thin, + pertinent finding ( chronicall ill) Eyes: normal inspection, EOMI ENT: hearing grossly normal Respiratory/Chest: no respiratory distress, no accessory muscle use, + decreased breath sounds Cardiovascular: regular rate, rhythm Abdomen/GI: non tender, soft, no organomegaly Extremities/Musculoskelatal: no calf tenderness, + pertinent finding (edema of bilateral calf to feet, 1-2+) Neurologic/Psych: alert, + disoriented Skin: normal color, warm/dry Laboratory Results 11/24/16 18:16 Red Blood Count 3.85, Mean Corpuscular Volume 82.3, Mean Corpuscular Hemoglobin 26.8, Mean Corpuscular Hemoglobin Concent 32.5, Mean Platelet Volume 8.2, Neutrophils (%) (Auto) 92.6, Lymphocytes (%) (Auto) 2.9, Monocytes (%) (Auto) 3.4, Eosinophils (%) (Auto) 0.6, Basophils (%) (Auto) 0.2, Neutrophils # (Auto) 11.05, Lymphocytes # (Auto) 0.35, Monocytes # (Auto) 0.40, Eosinophils # (Auto) 0.07, Basophils # (Auto) 0.02 11/25/16 08:01 Red Blood Count 4.18, Mean Corpuscular Volume 82.5, Mean Corpuscular Hemoglobin 26.6, Mean Corpuscular Hemoglobin Concent 32.2, Mean Platelet Volume 8.2, Neutrophils (%) (Auto) 95.5, Lymphocytes (%) (Auto) 3.1, Monocytes (%) (Auto) 1.1, Eosinophils (%) (Auto) 0.0, Basophils (%) (Auto) 0.0, Neutrophils # (Auto) 5.83, Lymphocytes # (Auto) 0.19, Monocytes # (Auto) 0.07, Eosinophils # (Auto) 0.00, Basophils # (Auto) 0.00 11/25/16 11:43 Red Blood Count 4.67, Mean Corpuscular Volume 82.9, Mean Corpuscular Hemoglobin 26.6, Mean Corpuscular Hemoglobin Concent 32.0, Mean Platelet Volume 8.2, Neutrophils (%) (Auto) 93.0, Lymphocytes (%) (Auto) 4.2, Monocytes (%) (Auto) 2.4, Eosinophils (%) (Auto) 0.0, Basophils (%) (Auto) 0.0, Neutrophils # (Auto) 6.84, Lymphocytes # (Auto) 0.31, Monocytes # (Auto) 0.18, Eosinophils # (Auto) 0.00, Basophils # (Auto) 0.00 11/24/16 18:16 11/25/16 08:01 11/26/16 06:47 Test 11/24/16 18:16 11/24/16 23:42 11/25/16 04:44 11/25/16 08:01 White Blood Count 11.92 K/uL (4.8-10.8) 6.11 K/uL (4.8-10.8) Red Blood Count 3.85 M/uL (4.2-5.4) 4.18 M/uL (4.2-5.4) Hemoglobin 10.3 g/dL (12.0-16.0) 11.1 g/dL (12.0-16.0) Hematocrit 31.7 % (37-47) 34.5 % (37-47) Mean Corpuscular Volume 82.3 fL (80-100) 82.5 fL (80-100) Mean Corpuscular Hemoglobin 26.8 pg (25-34) 26.6 pg (25-34) Mean Corpuscular Hemoglobin Concent 32.5 g/dl (32-36) 32.2 g/dl (32-36) Platelet Count 389 K/uL (130-400) 384 K/uL (130-400) Mean Platelet Volume 8.2 fL (7.4-10.4) 8.2 fL (7.4-10.4) Neutrophils (%) (Auto) 92.6 % 95.5 % Lymphocytes (%) (Auto) 2.9 % 3.1 % Monocytes (%) (Auto) 3.4 % 1.1 % Eosinophils (%) (Auto) 0.6 % 0.0 % Basophils (%) (Auto) 0.2 % 0.0 % Neutrophils # (Auto) 11.05 K/uL (1.4-6.5) 5.83 K/uL (1.4-6.5) Lymphocytes # (Auto) 0.35 K/uL (1.2-3.4) 0.19 K/uL (1.2-3.4) Monocytes # (Auto) 0.40 K/uL (0.11-0.59) 0.07 K/uL (0.11-0.59) Eosinophils # (Auto) 0.07 K/uL (0-0.5) 0.00 K/uL (0-0.5) Basophils # (Auto) 0.02 K/uL (0-0.2) 0.00 K/uL (0-0.2) RDW Standard Deviation 56.9 fL (36.4-46.3) 57.3 fL (36.4-46.3) RDW Coefficient of Variation 18.8 % (11.5-14.5) 18.8 % (11.5-14.5) Immature Granulocyte % (Auto) 0.3 % 0.3 % Immature Granulocyte # (Auto) 0.03 K/uL (0.00-0.02) 0.02 K/uL (0.00-0.02) Prothrombin Time 12.1 SECONDS (9.0-12.0) Prothromb Time International Ratio 1.1 (0.9-1.1) Activated Partial Thromboplast Time 32.6 SECONDS (21.0-31.0) Partial Thromboplastin Ratio 1.3 Anion Gap 10.0 mmol/L (3-11) 13.0 mmol/L (3-11) Est Creatinine Clear Calc Drug Dose 110.3 ml/min 99.2 ml/min Estimated GFR () 120.3 118.2 Estimated GFR (Non- 103.8 102.0 BUN/Creatinine Ratio 31.0 (10-20) 25.9 (10-20) Calcium Level 7.9 mg/dl (8.5-10.1) 8.1 mg/dl (8.5-10.1) Magnesium Level 2.1 mg/dl (1.8-2.4) Total Bilirubin 0.8 mg/dl (0.2-1) Direct Bilirubin 0.5 mg/dl (0-0.2) Aspartate Amino Transf (AST/SGOT) 18 U/L (15-37) Alanine Aminotransferase (ALT/SGPT) 13 U/L (12-78) Alkaline Phosphatase 67 U/L (45-117) Troponin I 0.162 ng/ml (0-0.045) 0.122 ng/ml (0-0.045) 0.077 ng/ml (0-0.045) Pro-B-Type Natriuretic Peptide 4358 pg/ml (0-1800) Total Protein 5.0 gm/dl (6.4-8.2) Albumin 1.8 gm/dl (3.4-5.0) Lipase 70 U/L (73-393) Thyroid Stimulating Hormone (TSH) 1.750 uIu/ml (0.300-4.500) Arterial Blood pH 7.48 (7.35-7.45) Arterial Blood Partial Pressure CO2 37 mmHg (35-46) Arterial Blood Partial Pressure O2 74 mm/Hg (80-95) Arterial Blood HCO3 27 mmol/L (19-24) Arterial Blood Oxygen Saturation 94.4 % (90-95) Arterial Blood Base Excess 3.1 mEq/L (-9-1.8) Arterial Blood Gas Delivery 2L Jerry Test POS (POS) Transferrin % Saturation % (15-50) Absolute Reticulocyte Count 0.09 10^6/uL (0.02-0.10) Percent Reticulocyte Count 2.2 % (0.5-2.0) Iron Level mcg/dl (35-150) Total Iron Binding Capacity mcg/dl (250-450) Transferrin 105 mg/dl (200-360) Ferritin 275.9 ng/ml (8.0-388.0) Vitamin B12 Level 1658 pg/mL (211-911) Folate 11.77 ng/mL (>5.38) Test 11/25/16 10:35 11/25/16 11:43 11/25/16 11:49 11/25/16 16:21 Total Creatine Kinase 87 U/L (26-192) Creatine Kinase MB 8.4 ng/ml (0.5-3.6) Creatine Kinase MB Ratio 9.7 (0-3.0) White Blood Count 7.36 K/uL (4.8-10.8) Red Blood Count 4.67 M/uL (4.2-5.4) Hemoglobin 12.4 g/dL (12.0-16.0) Hematocrit 38.7 % (37-47) Mean Corpuscular Volume 82.9 fL (80-100) Mean Corpuscular Hemoglobin 26.6 pg (25-34) Mean Corpuscular Hemoglobin Concent 32.0 g/dl (32-36) Platelet Count 431 K/uL (130-400) Mean Platelet Volume 8.2 fL (7.4-10.4) Neutrophils (%) (Auto) 93.0 % Lymphocytes (%) (Auto) 4.2 % Monocytes (%) (Auto) 2.4 % Eosinophils (%) (Auto) 0.0 % Basophils (%) (Auto) 0.0 % Neutrophils # (Auto) 6.84 K/uL (1.4-6.5) Lymphocytes # (Auto) 0.31 K/uL (1.2-3.4) Monocytes # (Auto) 0.18 K/uL (0.11-0.59) Eosinophils # (Auto) 0.00 K/uL (0-0.5) Basophils # (Auto) 0.00 K/uL (0-0.2) RDW Standard Deviation 56.9 fL (36.4-46.3) RDW Coefficient of Variation 18.7 % (11.5-14.5) Immature Granulocyte % (Auto) 0.4 % Immature Granulocyte # (Auto) 0.03 K/uL (0.00-0.02) Estimated Average Glucose 88 mg/dl Hemoglobin A1c 4.7 % (4.5-5.6) Bedside Glucose 124 mg/dl (70-90) 121 mg/dl (70-90) Test 11/25/16 20:18 11/26/16 06:47 11/26/16 07:39 11/26/16 11:43 Bedside Glucose 200 mg/dl (70-90) 194 mg/dl (70-90) 180 mg/dl (70-90) Anion Gap 11.0 mmol/L (3-11) Est Creatinine Clear Calc Drug Dose 58.2 ml/min Estimated GFR () 97.5 Estimated GFR (Non- 84.2 BUN/Creatinine Ratio 23.4 (10-20) Calcium Level 8.2 mg/dl (8.5-10.1) Magnesium Level 2.1 mg/dl (1.8-2.4) Date/Time Source Procedure Growth Status 11/25/16 15:15 Nasal MRSA DNA Surveillance Screen - Final Specimen Negative for MRSA by DNA Probe Complete Assessment & Plan (1) Stage IV adenocarcinoma of lung Assessment & Plan: S/p chemoradiation with Taxol/Carboplatin from 01/17-02/17 for locally advanced disease at diagnosis. She had metastatic recurrent disease to the brain in 06/2016, evaluated by [facility] and underwent gamma knife radiosurgery, completed in Fall 2015. She also was noted to have biopsy proven pelvic metastatic disease so she received palliative RT to this area locally (John Turner MD, [facility]), completed in . She was due to have a restaging PET/CT scan later this month, ordered by Dr. Cornelius. Her last PET/CT in 08/2016 did reveal the pelvic adenopathy, subsequently biopsy proven to be metastatic cancer, c/w lung primary, treated with RT as detailed above. No intrathoracic parenchymal or viji findings. During this hospitalization, a brain MRI reveals progressive disease involving left parietal lobe, while the left frontal and cerebellar lesions have been adequately palliated. Her CT scan shows progressive parenchymal and possible hilar findings. CT of abdomen/pelvis has appearance of treated pelvic adenopathy. She was started on Decadron 4 mg q6h for brain metastasis. Could consider for antiepileptic, like Keppra, will defer to RO. Discussed with patient, her and daughter that radiation oncology is warranted for new left parietal lesion to consider for WBRT at this point. We discussed contacting her local radiation oncologist, Dr. Turner, and they were all agreeable. I think with her current performance status it would be difficult for the patient to re-establish with [facility], who performed her gamma knife radiosurgery previously. Placed RO consult. Will arrange for follow up for patient in outpatient setting with Dr. Cornelius to discuss other possible systemic options, but if performance status fails to improve, it is unlikely she will be a candidate for therapy. Family understands palliative brain RT should occur prior to consideration of palliative systemic therapy. Her overall prognosis is poor. 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 (3) Brain metastasis Status: Acute Assessment & Plan: See above. (4) Pneumonia Status: Acute Assessment & Plan: Per hospitalist team- on empiric IV Zosyn and doxycycline. Patient oxygen saturation satisfactory on 2L O2.
--- NOTE | 2016-11-26 17:19 | Radiation Oncology Progress Nt ---
Radiation Oncology Progress Nt Date of Service Date of Service: Nov 26, 2016. Subjective Pt evaluation today including: conversation w/ patient, conversation w/ family Brief History: Hospitalized for reflux symptoms, cardiac issues ruled out Status post upper GI endoscopy and finding paralyzed vocal cord CT scans of the neck and chest revealing left upper lobe/mediastinal mass Status post PET/CT 12/14/2015 mediastinal and hilar adenopathy Status post bronchoscopy and biopsy 12/21/2015 revealing adenocarcinoma 4 L and 10 L lymph nodes Planned combined radiation and chemotherapy Status post completion of radiation therapy 02/29/2016 received 6000 cGy Finding of brain metastasis status post gamma knife therapy July 2016 Lung metastasis to the left iliac chain and periaortic lymph nodes biopsied Status post completion of radiation therapy to the pelvis 09/23/2016 received 3000 cGy Ms. Rahman is a 76-year old female who is well-known to our service. Her background history is as above. Most recently, she received a course of palliative radiation therapy to the left inguinal groin and completed treatment in September 2016. She did have a good response to treatment. At that point, she is not receiving any systemic chemotherapy. We did see her in October 2016 in her overall condition and improved. The patient has also been followed with Dr. Cornelius's office from medical oncology and they were planning to obtain a repeat PET/CT scan for restaging; however, the scan has not been ordered due to scheduling issues. In the interim, she has unfortunately presented with increasing bilateral lower extremity weakness and was brought to the emergency room and admitted to the hospital. While in the hospital, she did complain of some generalized leg weakness so they did order a MRI of the brain. Additionally, she has been seen by cardiology and pulmonary to manage her pulmonary and lower extremity edema. Her imaging results are below. Review of Systems Constitutional: + fatigue, + weight loss Eyes: No diplopia, No discharge, No eye pain, No problem reported, No redness, No see HPI, No worsening of vision ENT: No dental problems, No hearing loss, No nasal symptoms, No problem reported, No see HPI, No sore throat, No tinnitus, No trouble swallowing, No unusual epistaxis Respiratory: + cough, + wheezing Cardiac: + edema, No PND, No chest pain, No claudication, No orthopnea, No palpitations, No problem reported, No see HPI Breast: No breast lump, No breast pain, No change in shape, No nipple discharge , No problem reported, No see HPI Musculoskeletal: No calf pain, No joint pain, No muscle pain, No problem reported, No swelling All Other Systems: Reviewed and Negative Objective Vital Signs Date Time Temp Pulse Resp B/P Pulse Ox O2 Delivery O2 Flow Rate FiO2 11/26/16 14:56 36.0 66 20 120/71 100 Nasal Cannula 2.0 11/26/16 12:45 Nasal Cannula 2.0 11/26/16 12:10 36.3 71 19 116/68 99 Nasal Cannula 2.0 11/26/16 09:43 72 99 11/26/16 08:45 Nasal Cannula 2.0 11/26/16 07:54 36.4 64 20 105/55 100 Nasal Cannula 2.0 11/26/16 07:14 63 16 99 Nasal Cannula 2.0 11/26/16 04:00 Nasal Cannula 2.0 11/26/16 03:12 36.3 73 16 118/73 99 Nasal Cannula 2.0 11/26/16 02:27 72 16 98 Nasal Cannula 2.0 11/26/16 00:02 36.5 83 16 108/71 97 Nasal Cannula 2.0 11/26/16 00:00 Nasal Cannula 2.0 11/25/16 20:00 36.4 93 18 133/88 99 2.0 11/25/16 20:00 Nasal Cannula 2.0 11/25/16 19:25 91 16 96 Nasal Cannula 2.0 Physical Exam General Appearance: WD/WN, + cachetic Eyes: normal inspection ENT: normal ENT inspection Neurologic/Psychiatric: fire assistant II-XII nml as tested, alert, normal mood/affect, oriented x 3 Skin: normal color, warm/dry Radiological Studies CT Abdo/Pelvis (11/24/2016) - IMPRESSION: 1. Study significantly compromised given the lack of IV and oral contrast. 2. Partially visualized moderate bilateral pleural effusions, right larger than left with associated airspace opacities which could reflect atelectasis or consolidation. 3. Generalized anasarca. 4. Extensive sigmoid diverticulosis. The sensitivity for detection of acute diverticulitis is significantly diminished on this exam but no convincing evidence for acute diverticulitis. Mild multifocal nonspecific colonic wall thickening may reflect colitis or be due to underdistention. 5. Interval decrease in left external iliac lymphadenopathy since PET/CT of August 08, 2016. 6. Moderate amount of stool within the rectum. CT Thorax (11/25/2016) - IMPRESSION: 1. Bilateral pleural effusions right greater than left 2. Severe underlying emphysema 3. 1 cm solid right upper lobe pulmonary nodule, suspicious for neoplasm. There is also an 8 mm left upper lobe pulmonary nodule 4. Left upper lobe and left lower lobe airspace opacities suspicious for pneumonia 5. Mildly enlarged pretracheal lymph node 6. Left hilar fullness suspicious for adenopathy/consolidation 7. Thoracic aortic ectasia MRI Brain (11/25/2016) - IMPRESSION: 1. Marked reduction in the edema within the left frontal lobe with resolution of the pathologically enhancing left frontal lobe lesion. 2. Interval development of an 11 mm ring enhancing mass within the left temporal lobe with surrounding vasogenic edema. This is consistent with a neoplasm. 3. 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 No evidence of acute or subacute infarction Laboratory Results Last 24 Hours Test 11/25/16 20:18 11/26/16 06:47 11/26/16 07:39 11/26/16 11:43 Bedside Glucose 200 mg/dl 194 mg/dl 180 mg/dl Sodium Level 140 mmol/L Potassium Level 3.7 mmol/L Chloride Level 99 mmol/L Carbon Dioxide Level 30 mmol/L Anion Gap 11.0 mmol/L Blood Urea Nitrogen 16 mg/dl Creatinine 0.70 mg/dl Est Creatinine Clear Calc Drug Dose 58.2 ml/min Estimated GFR () 97.5 Estimated GFR (Non- 84.2 BUN/Creatinine Ratio 23.4 Random Glucose 175 mg/dl Calcium Level 8.2 mg/dl Magnesium Level 2.1 mg/dl Test 11/26/16 16:18 Bedside Glucose 189 mg/dl Assessment and Plan Ms. Rahman is a 76-year-old female with metastatic lung cancer who is underwent multiple courses of radiation therapy. She was most recently treated to the left inguinal region in September 2016. She has had previous gamma knife radiosurgery at an outside institution for a left frontal lobe metastatic lesion in the summer of 2015. The patient was admitted to the hospital due to generalized weakness and bilateral lower extremity swelling and pulmonary edema. While in the hospital setting, the patient has had a CT chest abdomen and pelvis and MRI of the brain. I have reviewed the CT of the chest/abdomen/ pelvis with radiology again and compared to a previous PET/CT scan from August 2016 and it appears that there is potentially no significant progression of disease. The MRI of the brain does reveal a new metastatic foci in the left temporal lobe with surrounding vasogenic edema and a significant response for the left frontal lobe that was previously treated with radiation therapy. Medical oncology has evaluated the patient and recommended consideration for palliative radiation therapy to the brain. We are now seeing the patient to discuss her role of radiation therapy. Today, I did have a discussion with the patient, her and her daughter. In summary, I recommended that the patient be evaluated by palliative care to discuss potential palliative options other than chemotherapy and radiation therapy. I did discuss consideration for stereotactic radiosurgery to the left frontal lobe if the patient's acute issues resolve. I explained to the patient and her family that I am concerned about her overall current performance status and the benefit from radiation therapy with respect to that. Tomorrow, I will speak with the primary hospitalist and discuss these issues as well. I have left my contact information with the patient's daughter to call me with any further questions or concerns. At this point, we will hold from initiating radiation therapy until the patient's condition improves or the patient's family has made a decision regarding how they would like to proceed after they have heard from palliative care as well. In the interim, I would recommend that the patient be maintained on Decadron to reduce vasogenic edema in the brain from the metastatic lesion. Please call me with any further questions or concerns.
[2016-11-26] MEDS: INSULIN GLARGINE SOLOSTAR 100 UNITS/ML 3 ML PEN SC SCH (21:04)
[2016-11-27] VITALS (7 sets, daily range): BP systolic 110–142; BP diastolic 65–84; PULSE 51–70; TEMP 36.4–36.9; O2SAT 91–99
[2016-11-27] MEDS: IPRATROPIUM BROMIDE NEB SOLN 0.02% 2.5 ML VIAL INH SCH ×2 (01:41→07:24)
[2016-11-27] MEDS: LEVALBUTEROL 1.25MG/0.5ML NEB INH SCH ×2 (01:41→07:24)
[2016-11-27] MEDS: PIPERACILL/TAZOBAC IV 3.375 GM in DEXTROSE 5% 100ML 100 ML IV SCH ×2 (02:33→09:52)
[2016-11-27] MEDS: DEXAMETHASONE INJ 4 MG in SYRINGE 0 ML IV SCH ×2 (06:15→11:53)
[2016-11-27 07:13] LABS: BUN/CREATININE RATIO 35.6 (10-20); CREATININE 0.52 mg/dl (0.60-1.20); POTASSIUM 3.7 mmol/L (3.5-5.1)
[2016-11-27] MEDS: INSULIN ASPART 100 UNITS/ML 3 ML PEN SC SCH ×4 (08:08→21:00)
[2016-11-27] MEDS: ESCITALOPRAM OXALATE 10 MG TAB PO SCH (08:09)
[2016-11-27] MEDS: METOPROLOL TARTRATE 25 MG TAB PO SCH ×2 (08:10→21:43)
[2016-11-27] MEDS: POTASSIUM CHLORIDE 10 MEQ TABCR PO SCH (08:10)
[2016-11-27] MEDS: DOCUSATE SODIUM/SENNA 50/8.6MG TAB PO SCH (08:10)
[2016-11-27] MEDS: BOOST PLUS VANILLA PO SCH ×4 (09:52→21:42)
[2016-11-27] MEDS ORDERED: DOXYCYCLINE HYCLATE 100 MG CAP PO SCH (10:00)
[2016-11-27] MEDS ORDERED: IPRATROPIUM BROMIDE NEB SOLN 0.02% 2.5 ML VIAL INH PRN (12:41)
[2016-11-27] MEDS ORDERED: LEVALBUTEROL 1.25MG/0.5ML NEB INH PRN (12:46)
--- NOTE | 2016-11-27 13:14 | Pulmonology Progress Note ---
Pulmonary Progress Note Date of Service Nov 27, 2016. Attending Dr. Bennett Subjective Denies any dyspnea, cough or pain today. Objective 76-yo female admitted to [facility] 11/24/16 with weakness, progression of metastatic cancer and pneumonia. Prior records were reviewed. 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 Patient admitted through the [facility] ER 11/24/16 with symptoms of left leg pain, headache, fatigue and weakness. Work-up included MRI fo the brain suggestive of further metastatic spread. CT chest 11/25 noted bilateral pleural effusion Rt > Left, pulmonary emphysema, 1cm RUL pulmonary nodule, 8mm DARINEL nodule, bilateral airspace opacities and pre-tracheal adenopathy. Echocardiogram: 11/25: EF: 70% with grade I diastolic dysfunction. She was treated with diuresis, doxycycline , pip-tazo and Q6-hour duo-nebs. Swallow evaluation 11/26 consistent with aspiration of thin, nectar, and pudding thick consistencies. Today: - 94-99% - 2LPM - Afebrile, HD stable - No new CBC, Co2: 35 - BC: NGTD Physical Exam: Constitutional: Thin cachectic elderly female sitting in chair at bedside No acute distress. Head: + facial symmetry Eyes: EOMi, PERRLA, pale conjunctiva Mouth: No erythema, exudate, or post nasal gtt Neck: Trachea midline. No adenopathy or masses Respiratory: Non-labored respirations. O2 via nasal cannula. No cough on exam. Fine velcro rales left base. Bronchial BS bilateral UEs. No wheeze Cardiovascular: RRR, no MRG. +2 radial pulses. <1s capillary refill. Abdomen: soft, active bowel sounds MSK/Extremities: Moving symmetrically. Muscle wasting. Bilateral +2 pitting edema extending 2" above the right ankle and 4" above the left. Neurologic: Alert, pleasant. Cooperative. Assessment & Plan 76-yo female admitted with progression of metastatic disease and pneumonia, likely related to chronic aspiration. 1. Antimicrobial coverage for aspiration as well as precautions/swallow recommendations 2. Continue nebulized bronchodilators and frequent positional changes 3. Will continue to follow-along Data Medications: Current Inpatient Medications Medications (Trade) Dose Ordered Sig/Darcy Route Start Time Stop Time Status Last Admin Dose Admin Acetaminophen (Tylenol Tab) 650 mg Q4H PRN PO 11/24/16 23:00 12/24/16 22:59 Nitroglycerin (Nitrostat Tab) 0.4 mg UD PRN SL 11/24/16 23:00 12/24/16 22:59 Hydromorphone HCl (Dilaudid Inj) 0.5 mg Q3H PRN IV 11/24/16 23:00 12/08/16 22:59 Ondansetron HCl (Zofran Inj) 4 mg Q6H PRN IV 11/24/16 23:00 12/24/16 22:59 Oxycodone/ Acetaminophen (Percocet 5-325mg Tab) 1 tab Q6H PRN PO 11/24/16 23:00 12/08/16 22:59 11/26/16 14:25 1 TAB Escitalopram Oxalate (Lexapro Tab) 20 mg DAILY PO 11/25/16 09:00 12/25/16 08:59 11/27/16 08:09 20 MG Albuterol/ Ipratropium (Duoneb) 3 ml Q2H PRN INH 11/24/16 23:00 12/24/16 22:59 Potassium Chloride (Klor-Con M10) 40 meq DAILY PO 11/25/16 09:00 12/25/16 08:59 11/27/16 08:10 40 MEQ Senna/Docusate Sodium 1 tab 1 tab DAILY PO 11/25/16 09:00 12/25/16 08:59 11/27/16 08:10 1 TAB Dexamethasone Sodium Phosphate 4 mg/Syringe 1 ml @ 1 mls/min Q6H IV 11/25/16 12:00 12/25/16 10:59 11/27/16 11:53 1 MLS/MIN Piperacillin Sod/ Tazobactam Sod/ Dextrose (Zosyn Iv/D5 100ml) 115 ml @ 28.75 mls/ hr Q8H IV 11/25/16 18:00 12/02/16 17:59 11/27/16 09:52 28.75 MLS/HR Piperacillin Sod/ Tazobactam Sod (Consult) 1 ea UD PRN N/A 11/25/16 11:15 12/25/16 11:14 Enteral Nutritional Formula (Boost Plus Vanilla) 1 can BID@1000,1900 PO 11/25/16 19:00 12/25/16 18:59 11/27/16 09:52 1 CAN Metoprolol Tartrate (Lopressor Tab) 12.5 mg BID PO 11/25/16 21:00 12/25/16 20:59 11/27/16 08:10 12.5 MG Ipratropium [place] (Atrovent 0.02% 0.5MG/2.5ML Neb) 0.5 mg Q6R INH 11/25/16 21:00 12/25/16 20:59 11/27/16 07:24 0.5 MG Levalbuterol (Xopenex 1.25MG/ 0.5ML Neb) 1.25 mg Q6R INH 11/25/16 21:00 12/25/16 20:59 11/27/16 07:24 1.25 MG Gadobutrol (Gadavist) 5 mmol UD PRN IV 11/25/16 18:45 11/29/16 18:44 Insulin Glargine (Lantus Solostar Pen) 5 unit HS SC 11/26/16 21:00 12/26/16 20:59 11/26/16 21:04 5 UNIT Insulin Aspart (novoLOG ASPART) SLIDING SCALE If C... ACHS SC 11/25/16 21:30 12/25/16 21:29 11/26/16 17:47 1 UNITS Glucose (Glucose 40% Gel) 15-30 GRAMS 15 GRAMS... UD PRN PO 11/25/16 21:15 12/25/16 21:14 Glucose (Glucose Chew Tab) 4-8 Tablets 4 Tabl... UD PRN PO 11/25/16 21:15 12/25/16 21:14 Dextrose (Dextrose 50% 50ML Syringe) 25-50ML OF 50% DW IV FOR... UD PRN IV 11/25/16 21:15 12/25/16 21:14 Glucagon (Glucagon Inj) 1 mg UD PRN SQ 11/25/16 21:15 12/25/16 21:14 Doxycycline Hyclate (Vibramycin Cap) 100 mg BID PO 11/27/16 10:00 12/02/16 11:59 11/27/16 11:52 100 MG I & O: 24-Hour Column 11/27/16 08:00 Intake Total 986 ml Balance 986 ml Vital Signs: Date Time Temp Pulse Resp B/P Pulse Ox O2 Delivery O2 Flow Rate FiO2 11/27/16 12:20 Nasal Cannula 2.0 11/27/16 08:10 Nasal Cannula 2.0 11/27/16 08:10 94 Nasal Cannula 2.0 11/27/16 07:39 36.4 70 16 142/84 94 2.0 11/27/16 07:24 51 16 99 Nasal Cannula 2.0 11/27/16 04:26 36.9 61 18 134/70 99 Nasal Cannula 2.0 11/27/16 04:00 Nasal Cannula 2.0 11/27/16 00:00 Nasal Cannula 2.0 11/26/16 23:14 36.4 64 20 119/75 95 Nasal Cannula 2.0 11/26/16 20:14 68 16 96 Nasal Cannula 2.0 11/26/16 20:04 36.4 62 18 112/75 96 Nasal Cannula 2.0 11/26/16 20:00 Nasal Cannula 2.0 11/26/16 16:00 100 Nasal Cannula 2.0 11/26/16 14:56 36.0 66 20 120/71 100 Nasal Cannula 2.0 Laboratory Results: Last 24 Hours Test 11/26/16 16:18 11/26/16 20:46 11/27/16 06:20 11/27/16 07:26 Bedside Glucose 189 mg/dl 160 mg/dl 309 mg/dl Sodium Level 139 mmol/L Potassium Level 3.7 mmol/L Chloride Level 99 mmol/L Carbon Dioxide Level 35 mmol/L Anion Gap 5.0 mmol/L Blood Urea Nitrogen 18 mg/dl Creatinine 0.52 mg/dl Est Creatinine Clear Calc Drug Dose 75.8 ml/min Estimated GFR () 107.6 Estimated GFR (Non- 92.8 BUN/Creatinine Ratio 35.6 Random Glucose 137 mg/dl Calcium Level 8.0 mg/dl Magnesium Level 2.0 mg/dl Test 11/27/16 08:03 11/27/16 12:06 Bedside Glucose 128 mg/dl 146 mg/dl
[2016-11-27] MEDS: DEXAMETHASONE 4 MG TAB PO SCH ×2 (18:31→23:12)
[2016-11-27] MEDS: AMOXICILLIN/CLAVULANATE TAB 875 MG TAB PO SCH (18:31)
[2016-11-27] MEDS: INSULIN GLARGINE SOLOSTAR 100 UNITS/ML 3 ML PEN SC SCH (21:42)
--- NOTE | 2016-11-27 22:48 | Progress Note ---
Medicine Progress Note Date & Time of Visit: Nov 27, 2016 at 12:06. Subjective 76 yoF with h/o Stage IV adenocarcinoma of lunh with kim and pelvic mets s/p chemo and multiple XRT treatments including gamma knife radiation for brain mets last Jun (2015). She presented with hypoxia, leg edema, headache and increased confusion and an MRI revealed a new lesion on her L temporal lobe consistent with mets. Dexamethasone was started and radiation oncology consulted. Dr. Turner is considering treatment, however, pulm and cards consultants feel her prognosis is poor. The family is at bedside today and I had a 45 minute discussion with them. They are not at the point of giving up and pursuing palliative care alone at this point as she said, "well no one has given us a prognosis." Daughter mentions that patient has a PET CT scheduled for tomorrow they would like to try and make, and also that they have an appointment with Dr. Barnes on . I discussed with the family that this would be the ideal time to discuss this with Dr. Cornelius her prognosis and options at this point. Pt declines any symptoms of headache, visual changes, shortness of breath, chest pain and states that her body edema has greatly improved. Also, of note, Case Management is still working on a referral to rehab for her as she is too unsteady to go home at this point. Furthermore, speech evaluated the patient and stated that she aspirates and they recommend NPO with alternative form of feeding.vs permissive aspiration, especially if on palliative care measures. Objective Last 8 Hrs Date Time Temp Pulse Resp B/P Pulse Ox O2 Delivery O2 Flow Rate FiO2 11/27/16 08:10 Nasal Cannula 2.0 11/27/16 08:10 94 Nasal Cannula 2.0 11/27/16 07:39 36.4 70 16 142/84 94 2.0 11/27/16 07:24 51 16 99 Nasal Cannula 2.0 11/27/16 04:26 36.9 61 18 134/70 99 Nasal Cannula 2.0 Physical Exam: GEN: elderly, thin, frail, in no acute distress, alert and appropriate HEENT: NC/AT, PERRL, normal sclerae,EOMI CARDIO: reg rate, S1/2 heard without m/g/r LUNGS: CTA bilaterally, no crackles, rales or wheezes, good diaphragmatic excursion ABD: soft, non-tender, non-distended, no rebound or guarding EXTREMITY: RP and DP palpable 2+ bilat, no LE swelling or edema, extremities are warm and well-perfused NEURO: CN 2-12 intact, sensation intact throughout, no focal deficits MUSC: 5/5 strength throughout, no focal deficits, gait was not assessed 2/2 fall risk SKIN: warm and dry Laboratory Results: Last 24 Hours Test 11/26/16 16:18 11/26/16 20:46 11/27/16 06:20 11/27/16 07:26 Bedside Glucose 189 mg/dl 160 mg/dl 309 mg/dl Sodium Level 139 mmol/L Potassium Level 3.7 mmol/L Chloride Level 99 mmol/L Carbon Dioxide Level 35 mmol/L Anion Gap 5.0 mmol/L Blood Urea Nitrogen 18 mg/dl Creatinine 0.52 mg/dl Est Creatinine Clear Calc Drug Dose 75.8 ml/min Estimated GFR () 107.6 Estimated GFR (Non- 92.8 BUN/Creatinine Ratio 35.6 Random Glucose 137 mg/dl Calcium Level 8.0 mg/dl Magnesium Level 2.0 mg/dl Test 11/27/16 08:03 Bedside Glucose 128 mg/dl Assessment & Plan 76 year old female with history of St.IV Lung CA, with Brain and Pelvic Mets presenting with leg swelling. 1. New brain metastasis -Left temporal lobe- with vasogenic edema: -no headache or new focal neuro deficits today. -cont Decadron 4mg q6h started -PRN insulin -contact Jessika/Johnny RE: plan 2. Headache-resolved 3. Anasarca-improved, add MONTRELL hose, off oxygen today, s/p 2 days Lasix/ albumin. Hypoalbuminemia contributing. 4. Stag IV lung adenocarcinoma 5. Pneumonia 6. Aspiration/swallowing issues-per Speech Strict NPO would be safest with alternative methods of nitration and hydration, however, alternative is to allow for permissive aspiration based on level of aggressiveness desired. For now, cont with pureed diet, no straws and strict aspiration precautions. 7. Bilateral pleural effusion, poss malignant etiology with pneumonia. -Zosyn/Doxy IV-->switch to PO -decrease nebs to PRN - Pulmonary consulted, thoracentesis not recommended at this time 8. Elevated troponin with EKG changes: - Cardiology consulted - echo: no wall motion abnormalities - no chest pain Metoprolol added , tolerating well no further interventions at this time 9. Abdominal pain-resolved DVT Prophylaxis SCDs due to presence of brain mets Dispo pending PT/OT eval [facility] Current Inpatient Medications: Current Inpatient Medications Medications (Trade) Dose Ordered Sig/Darcy Route Start Time Stop Time Status Last Admin Dose Admin Acetaminophen (Tylenol Tab) 650 mg Q4H PRN PO 11/24/16 23:00 12/24/16 22:59 Nitroglycerin (Nitrostat Tab) 0.4 mg UD PRN SL 11/24/16 23:00 12/24/16 22:59 Hydromorphone HCl (Dilaudid Inj) 0.5 mg Q3H PRN IV 11/24/16 23:00 12/08/16 22:59 Ondansetron HCl (Zofran Inj) 4 mg Q6H PRN IV 11/24/16 23:00 12/24/16 22:59 Oxycodone/ Acetaminophen (Percocet 5-325mg Tab) 1 tab Q6H PRN PO 11/24/16 23:00 12/08/16 22:59 11/26/16 14:25 1 TAB Escitalopram Oxalate (Lexapro Tab) 20 mg DAILY PO 11/25/16 09:00 12/25/16 08:59 11/27/16 08:09 20 MG Albuterol/ Ipratropium (Duoneb) 3 ml Q2H PRN INH 11/24/16 23:00 12/24/16 22:59 Potassium Chloride (Klor-Con M10) 40 meq DAILY PO 11/25/16 09:00 12/25/16 08:59 11/27/16 08:10 40 MEQ Senna/Docusate Sodium 1 tab 1 tab DAILY PO 11/25/16 09:00 12/25/16 08:59 11/27/16 08:10 1 TAB Dexamethasone Sodium Phosphate 4 mg/Syringe 1 ml @ 1 mls/min Q6H IV 11/25/16 12:00 12/25/16 10:59 11/27/16 11:53 1 MLS/MIN Piperacillin Sod/ Tazobactam Sod/ Dextrose (Zosyn Iv/D5 100ml) 115 ml @ 28.75 mls/ hr Q8H IV 11/25/16 18:00 12/02/16 17:59 11/27/16 09:52 28.75 MLS/HR Piperacillin Sod/ Tazobactam Sod (Consult) 1 ea UD PRN N/A 11/25/16 11:15 12/25/16 11:14 Enteral Nutritional Formula (Boost Plus Vanilla) 1 can BID@1000,1900 PO 11/25/16 19:00 12/25/16 18:59 11/27/16 09:52 1 CAN Metoprolol Tartrate (Lopressor Tab) 12.5 mg BID PO 11/25/16 21:00 12/25/16 20:59 11/27/16 08:10 12.5 MG Ipratropium [place] (Atrovent 0.02% 0.5MG/2.5ML Neb) 0.5 mg Q6R INH 11/25/16 21:00 12/25/16 20:59 11/27/16 07:24 0.5 MG Levalbuterol (Xopenex 1.25MG/ 0.5ML Neb) 1.25 mg Q6R INH 11/25/16 21:00 12/25/16 20:59 11/27/16 07:24 1.25 MG Gadobutrol (Gadavist) 5 mmol UD PRN IV 11/25/16 18:45 11/29/16 18:44 Insulin Glargine (Lantus Solostar Pen) 5 unit HS SC 11/26/16 21:00 12/26/16 20:59 11/26/16 21:04 5 UNIT Insulin Aspart (novoLOG ASPART) SLIDING SCALE If C... ACHS SC 11/25/16 21:30 12/25/16 21:29 11/26/16 17:47 1 UNITS Glucose (Glucose 40% Gel) 15-30 GRAMS 15 GRAMS... UD PRN PO 11/25/16 21:15 12/25/16 21:14 Glucose (Glucose Chew Tab) 4-8 Tablets 4 Tabl... UD PRN PO 11/25/16 21:15 12/25/16 21:14 Dextrose (Dextrose 50% 50ML Syringe) 25-50ML OF 50% DW IV FOR... UD PRN IV 11/25/16 21:15 12/25/16 21:14 Glucagon (Glucagon Inj) 1 mg UD PRN SQ 11/25/16 21:15 12/25/16 21:14 Doxycycline Hyclate (Vibramycin Cap) 100 mg BID PO 11/27/16 10:00 12/02/16 11:59 11/27/16 11:52 100 MG
[2016-11-28] VITALS (9 sets, daily range): BP systolic 142–162; BP diastolic 71–93; PULSE 57–65; TEMP 36.3–36.7; O2SAT 91–92
[2016-11-28] MEDS: DEXAMETHASONE 4 MG TAB PO SCH ×3 (05:35→17:30)
[2016-11-28 07:39] LABS: HEMATOCRIT 32.5 % (37-47); MEAN CELL VOLUME 83.3 fL (80-100); MEAN CORPUSCULAR HEMOGLOBIN 26.2 pg (25-34); MEAN CORPUSCULAR HGB CONC 31.4 g/dl (32-36); MEAN PLATELET VOLUME 8.4 fL (7.4-10.4); PLATELET COUNT 410 K/uL (130-400); WHITE BLOOD COUNT 9.48 K/uL (4.8-10.8)
[2016-11-28] MEDS: AMOXICILLIN/CLAVULANATE TAB 875 MG TAB PO SCH ×2 (08:06→17:30)
[2016-11-28] MEDS: ESCITALOPRAM OXALATE 10 MG TAB PO SCH (08:07)
[2016-11-28] MEDS: POTASSIUM CHLORIDE 10 MEQ TABCR PO SCH (08:07)
[2016-11-28] MEDS: DOCUSATE SODIUM/SENNA 50/8.6MG TAB PO SCH (08:08)
[2016-11-28] MEDS: INSULIN ASPART 100 UNITS/ML 3 ML PEN SC SCH ×3 (08:08→17:03)
[2016-11-28] MEDS: METOPROLOL TARTRATE 25 MG TAB PO SCH (08:08)
[2016-11-28 08:11] LABS: BUN/CREATININE RATIO 38.5 (10-20); CALCIUM 8.3 mg/dl (8.5-10.1); CREATININE 0.48 mg/dl (0.60-1.20); MAGNESIUM 2.2 mg/dl (1.8-2.4); POTASSIUM 3.7 mmol/L (3.5-5.1)
[2016-11-28] MEDS: BOOST PLUS VANILLA PO SCH ×4 (09:37→19:00)
--- NOTE | 2016-11-28 09:39 | ONCOLOGY CONSULTATION ---
DATE OF CONSULTATION: 11/28/2016 DATE OF CONSULTATION: 11/28/2016. I spoke with Mrs. Rahman's daughter yesterday at length regarding her mother's condition. I explained to her daughter that Mrs. Rahman has evidence of progressive metastatic lung cancer with new brain metastasis and probably persistent cancer in her lung with likely mediastinal adenopathy. 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 I explained to her daughter that Mrs. Rahman's performance status is such that she is not a candidate for further chemotherapy. Without treatment of her primary malignancy her prognosis is extremely poor with an expected survival of less than 3 months. I explained to her daughter that radiation therapy was unlikely to significantly benefit her and I felt it was very reasonable to not pursue further radiation treatments. I discussed hospice at length with her daughter and recommended that hospice referral be considered. Whether or not Mrs. Rahman can return home with hospice is uncertain at this time. It is quite likely that she will require fpc placement for terminal comfort care. At this time, I have not met with Mrs. Rahman. If the primary service feels that that would be beneficial please let me know and I will be happy to visit with Mrs. Rahman. POLY
--- NOTE | 2016-11-28 12:21 | Palliative Care Consultation ---
Consultation Date of Consultation: Nov 28, 2016. Requesting Physician: Dr. Calvin Attending Physician: Dr. Calvin Reason for Consultation: Goals of care History of Present Illness This 76 year old female patient presented to the ED four days ago with complaints of intermittent confusion, bilateral lower extremity edema. 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 She was first diagnosed with cancer in December 2015, developed blurred vision in January 2016 and noted to have right temporal mass on MRI, and in June of 2016 follow up MRI showed left frontotemporal lobe with surrounding vasogenic edema with a right midline shift. At that time in June, patient went to [facility] and was started on steroids, found to not be a surgical candidate. In July, she underwent gamma knife radiotherapy for the brain mets, follow up MRI showed smaller left temporal lesion. The patient apparently has had issues with the bilateral leg edema for some time first thought to be from the steroids she was on, she also has pain in the left leg. CT of head showed some treatment response to the left temporal lobe lesion, but increased edema on posterior left temporal lobe but is nonspecific. CT abd/pelvis showed anasarca, fecal retention, decrease in left external iliac lymphadenopathy, sigmoid diverticulosis and right pleural effusion. Lower extremity US negative for DVT. Her daughter also noted that she has had a cough and some SOB, using oxygen at home. Patient was also has aspiration pneumonia and was found to be silently aspirating by speech language pathologist, who recommended NPO and alternate feeding measures. Patient has been seen by pulmonology, cardiology, medical oncology, and radiation oncology during this admission. All are in agreement that patient has a rather poor prognosis. Chemotherapy likely has little role here and radiation therapy could be offered, but physician is skeptical that this will provide any benefit to the patient. Palliative care consulted to assist with establishing goals of care. I spoke with the patient's daughter on the phone. She will be coming in at 2pm this afternoon to have a meeting to discuss goals of care. I did meet with the patient in the room. She was sitting up in chair and pleasantly confused. She did know she was in the hospital, when I asked her why she was here she said, "Well I have the two things with cancer, and I've done pretty well with that." But she really was not able to participate in any other conversation. She was talking about a methodist group and people singing. She did state though that she has no pain or discomfort at this time. Her was at the bedside and also denied any questions/concerns at this time. 1545: Met with the patient's daughter, Juana, for an hour and 45 minutes to discuss. The speech language pathologist was present for the first 45 minutes as well to discuss the aspiration. Juana is incredibly frustrated with the entire situation with her mother. She has been very unhappy with what she described as "the lack of communication between the family and the physicians and also with the nursing care." After some support and talking things through, she did calm down. We discussed the patient's medical conditions and goals of care. While Long, speech language pathologist, was in the room she explained aspiration and aspiration pneumonia. We discussed alternatives as far as comfort feeding given the risk of aspiration and the choice of a feeding tube. The patient absolutely would not want a feeding tube and Juana is okay with comfort feeding. The daughter states that the family and patient have decided to not pursue any further treatment as far as chemo or radiation. They understand that the patient's diagnosis is terminal and the goal is to get the patient home on hospice. The patient has repeatedly told Juana and the that she just wants to go home. I explained hospice, their service, role and philosophy of care. The daughter agrees that the goal is strictly for comfort and to stay out of the hospital, she understands that hospice treats symptomatically. We discussed transferring out of telemetry to [facility], she would like that very much. Patient lives home with who cares for her. I stressed the fact that hospice is a supportive service and will not be there all the time, just several times a week. I expressed my concern of burn out for the patient's . Juana stated that her and her help out with care as well. We will provide them with a list of private pay caregivers in case they are needed. Past Medical/Surgical History Medical History: Breast CA Uterine CA Hypertension Lung CA with mets to brain and pelvis Hyperlipidemia Surgical History: Cholecystectomy Left breast surgery Hysterectomy Social History Smoking Status: Former Smoker History of Alcohol Use: No Drug Use: none Marital Status: Occupation Status: retired Review of Systems Constitutional: + weakness, No chills, No fever Respiratory: + cough (occasionally), + dyspnea on exertion, No shortness of breath, No sputum Cardiac: + edema, No chest pain Abdomen: + problem reported (reported by nursing staff that she is incontinent of stool), No nausea, No pain, No vomiting Female : No problem reported Psychiatric: No depression symptoms Allergies Coded Allergies: NO KNOWN DRUG ALLERGIES (Verified Allergy, Mild, ., 11/24/16) Blue Dyes (Parenteral) (Verified Allergy, Unknown, hot flash, 06/13/16) states had blue dye for test in the 1970s and became very hot as soon as administered. Medications Current Inpatient Medications Medications (Trade) Dose Ordered Sig/Darcy Route Start Time Stop Time Status Last Admin Dose Admin Acetaminophen (Tylenol Tab) 650 mg Q4H PRN PO 11/24/16 23:00 12/24/16 22:59 Nitroglycerin (Nitrostat Tab) 0.4 mg UD PRN SL 11/24/16 23:00 12/24/16 22:59 Hydromorphone HCl (Dilaudid Inj) 0.5 mg Q3H PRN IV 11/24/16 23:00 12/08/16 22:59 Ondansetron HCl (Zofran Inj) 4 mg Q6H PRN IV 11/24/16 23:00 12/24/16 22:59 Oxycodone/ Acetaminophen (Percocet 5-325mg Tab) 1 tab Q6H PRN PO 11/24/16 23:00 12/08/16 22:59 11/26/16 14:25 1 TAB Escitalopram Oxalate (Lexapro Tab) 20 mg DAILY PO 11/25/16 09:00 12/25/16 08:59 11/28/16 08:07 20 MG Albuterol/ Ipratropium (Duoneb) 3 ml Q2H PRN INH 11/24/16 23:00 12/24/16 22:59 Potassium Chloride (Klor-Con M10) 40 meq DAILY PO 11/25/16 09:00 12/25/16 08:59 11/28/16 08:07 40 MEQ Senna/Docusate Sodium (Senokot S Tab) 1 tab DAILY PO 11/25/16 09:00 12/25/16 08:59 11/28/16 08:08 1 TAB Enteral Nutritional Formula (Boost Plus Vanilla) 1 can BID@1000,1900 PO 11/25/16 19:00 12/25/16 18:59 11/27/16 21:42 1 CAN Metoprolol Tartrate (Lopressor Tab) 12.5 mg BID PO 11/25/16 21:00 12/25/16 20:59 11/27/16 21:43 12.5 MG Gadobutrol (Gadavist) 5 mmol UD PRN IV 11/25/16 18:45 11/29/16 18:44 Insulin Glargine (Lantus Solostar Pen) 5 unit HS SC 11/26/16 21:00 12/26/16 20:59 11/27/16 21:42 5 UNIT Insulin Aspart (novoLOG ASPART) SLIDING SCALE If C... ACHS SC 11/25/16 21:30 12/25/16 21:29 11/26/16 17:47 1 UNITS Glucose (Glucose 40% Gel) 15-30 GRAMS 15 GRAMS... UD PRN PO 11/25/16 21:15 12/25/16 21:14 Glucose (Glucose Chew Tab) 4-8 Tablets 4 Tabl... UD PRN PO 11/25/16 21:15 12/25/16 21:14 Dextrose (Dextrose 50% 50ML Syringe) 25-50ML OF 50% DW IV FOR... UD PRN IV 11/25/16 21:15 12/25/16 21:14 Glucagon (Glucagon Inj) 1 mg UD PRN SQ 11/25/16 21:15 12/25/16 21:14 Ipratropium [place] (Atrovent 0.02% 0.5MG/2.5ML Neb) 0.5 mg Q6R PRN INH 11/27/16 12:41 12/27/16 12:40 Dexamethasone (Decadron Tab) 4 mg Q6H PO 11/27/16 18:00 12/27/16 17:59 11/28/16 05:35 4 MG Amoxicillin/ Clavulanate Potassium (Augmentin Tab) 875 mg BIDM PO 11/27/16 17:00 12/04/16 16:59 11/28/16 08:06 875 MG Levalbuterol (Xopenex 1.25MG/ 0.5ML Neb) 1.25 mg Q6R PRN INH 11/27/16 12:46 12/27/16 12:45 Physical Exam Date Time Temp Pulse Resp B/P Pulse Ox O2 Delivery O2 Flow Rate FiO2 11/28/16 11:19 36.4 65 18 142/73 92 Room Air 11/28/16 07:45 91 Room Air 11/28/16 07:21 36.3 57 18 159/73 91 Room Air 11/28/16 04:57 36.4 58 18 147/71 92 Room Air 11/28/16 04:00 Room Air 11/28/16 00:37 36.6 58 18 156/79 92 Room Air 11/28/16 00:00 Room Air 11/27/16 20:57 36.5 66 20 110/65 91 Nasal Cannula 2.0 11/27/16 20:00 Room Air 11/27/16 16:00 93 Room Air 11/27/16 14:00 36.5 65 16 134/71 93 Room Air 11/27/16 12:20 Nasal Cannula 2.0 General Appearance: no apparent distress, + thin Neck: no JVD Respiratory: no respiratory distress, no accessory muscle use, + decreased breath sounds (LLL), + rhonchi (coarse on right > left), + pertinent finding ( room air) Cardiovascular: regular rate, rhythm, + pertinent finding (+3-4 pitting edema of bilateral lower extremities) Abdomen: normal bowel sounds, non tender, soft Musculoskeletal: pertinent finding (generalized weakness) Neurologic/Psychiatric: alert, normal mood/affect, + disoriented Laboratory Results Last 24 Hours Test 11/27/16 12:06 11/27/16 16:30 11/27/16 20:25 11/28/16 06:55 Bedside Glucose 146 mg/dl 137 mg/dl 139 mg/dl White Blood Count 9.48 K/uL Red Blood Count 3.90 M/uL Hemoglobin 10.2 g/dL Hematocrit 32.5 % Mean Corpuscular Volume 83.3 fL Mean Corpuscular Hemoglobin 26.2 pg Mean Corpuscular Hemoglobin Concent 31.4 g/dl RDW Standard Deviation 59.0 fL RDW Coefficient of Variation 19.3 % Platelet Count 410 K/uL Mean Platelet Volume 8.4 fL Sodium Level 140 mmol/L Potassium Level 3.7 mmol/L Chloride Level 99 mmol/L Carbon Dioxide Level 30 mmol/L Anion Gap 11.0 mmol/L Blood Urea Nitrogen 19 mg/dl Creatinine 0.48 mg/dl Est Creatinine Clear Calc Drug Dose 78.4 ml/min Estimated GFR () 110.4 Estimated GFR (Non- 95.3 BUN/Creatinine Ratio 38.5 Random Glucose 99 mg/dl Calcium Level 8.3 mg/dl Magnesium Level 2.2 mg/dl Test 11/28/16 07:26 Bedside Glucose 101 mg/dl Assessment & Plan Palliative Performance Scale: 50 % Problem list: Weakness Confusion Cough/SOB Lung cancer with mets to brain and pelvis New brain mets in left temporal lobe with vasogenic edema Anasarca Hypoalbuminemia Pneumonia, aspiration Elevated troponin Goals of care (Z51.5) Palliative care plan: Discussed with daughter Juana and Dr. Calvin. Plan to transfer to [facility] for now and go home with hospice once set up-- I asked patient case manager to have liaison from [facility] come to speak with the patient's family. Goal is to get the patient home with hospice. Patient would like no further treatment as far as chemo or radiation. I explained the POLST form and will fill it out with family before discharge. Recommend: Dietary consult for teaching family about pureed foods. Daughter had a lot of questions on how to do this. Continue pureed diet for comfort feeding, despite risk of aspiration per family and patient's wish. No plan for feeding tube. Speech therapist to provide education on techniques for aspiration precautions. Patient denies any symptoms at this time. Did speak with Dr. Calvin about continuing decadron and Augmentin at home-- she will come up with plan for these meds. Thank you kindly for this consult.
[2016-11-28] MEDS ORDERED: FUROSEMIDE 20 MG TAB PO ONE ×2 (18:20→19:45)
--- NOTE | 2016-11-28 22:51 | Progress Note ---
Medicine Progress Note Date & Time of Visit: Nov 28, 2016 at 18:17. Subjective Pt doing well today Denies nausea vomiting, diarrhea, abdominal pain Denies headache, visual changes Denies fevers, chills or cough Reports some worsened swelling from yesterday tolerating PO Ambulates with max assist Last 24: Palliative care consult Changed status to DNR and plan to go home with Hospice Decreased decadron to 4mg q12 after convo with Dr. Turner Family on board with reducing her medication burden and de-escalating care tremendously at this point Objective Last 8 Hrs Date Time Temp Pulse Resp B/P Pulse Ox O2 Delivery O2 Flow Rate FiO2 11/28/16 16:00 91 Room Air 11/28/16 14:52 36.7 61 16 162/93 91 Room Air 11/28/16 12:00 92 Room Air 11/28/16 11:19 36.4 65 18 142/73 92 Room Air Physical Exam: GEN: elderly, thin, frail, in no acute distress, alert and appropriate HEENT: NC/AT, normal sclerae, pupils were equal bilaterally CARDIO: reg rate, S1/2 heard without m/g/r LUNGS: CTA bilaterally, no crackles, rales or wheezes, good diaphragmatic excursion ABD: soft, non-tender, non-distended, no rebound or guarding EXTREMITY: RP and DP palpable 2+ bilat, 3+ pitting edema to her knees, extremities are warm and well-perfused NEURO: CN 2-12 intact, sensation intact throughout, no focal deficits MUSC: 5/5 strength throughout, no focal deficits, gait was not assessed 2/2 fall risk SKIN: warm and dry Laboratory Results: Last 24 Hours Test 11/27/16 20:25 11/28/16 06:55 11/28/16 07:26 11/28/16 11:29 Bedside Glucose 139 mg/dl 101 mg/dl 100 mg/dl White Blood Count 9.48 K/uL Red Blood Count 3.90 M/uL Hemoglobin 10.2 g/dL Hematocrit 32.5 % Mean Corpuscular Volume 83.3 fL Mean Corpuscular Hemoglobin 26.2 pg Mean Corpuscular Hemoglobin Concent 31.4 g/dl RDW Standard Deviation 59.0 fL RDW Coefficient of Variation 19.3 % Platelet Count 410 K/uL Mean Platelet Volume 8.4 fL Sodium Level 140 mmol/L Potassium Level 3.7 mmol/L Chloride Level 99 mmol/L Carbon Dioxide Level 30 mmol/L Anion Gap 11.0 mmol/L Blood Urea Nitrogen 19 mg/dl Creatinine 0.48 mg/dl Est Creatinine Clear Calc Drug Dose 78.4 ml/min Estimated GFR () 110.4 Estimated GFR (Non- 95.3 BUN/Creatinine Ratio 38.5 Random Glucose 99 mg/dl Calcium Level 8.3 mg/dl Magnesium Level 2.2 mg/dl Test 11/28/16 16:42 Bedside Glucose 85 mg/dl Assessment & Plan 76 year old female with history of St.IV Lung CA, with Brain and Pelvic Mets presenting with leg swelling. 1. New brain metastasis -Left temporal lobe- with vasogenic edema: -no headache or new focal neuro deficits today. -dec Decadron 4mg to q12h -blood sugar checks were stopped 2/2 comfort, plan to wean off steroids soon -will discuss this plan with Dr. Turner in am. 2. Headache-resolved 3. Anasarca-improved, cont MONTRELL hose, off oxygen today, s/p 2 days Lasix/ albumin. Hypoalbuminemia contributing. Oxygen as needed. Will cont Lasix/ potassium for comfort. Daughter became very emotional when we discussed stopping that treatment. Agree this could be considered palliative. 4. Stag IV lung adenocarcinoma-family decided to go home with Hospice. Modified comfort care measures instituted at this point. Code status changed to DNR after conversation with the family. 5. Pneumonia-cont Augmentin 6. Aspiration/swallowing issues-per Speech Strict NPO would be safest with alternative methods of nitration and hydration, however, alternative is to allow for permissive aspiration based on level of aggressiveness desired. For now, cont with pureed diet, no straws and strict aspiration precautions. 7. Bilateral pleural effusion, poss malignant etiology with pneumonia. Pulm consulted earlier during admission and recommends no thoracentesis -Zosyn/Doxy IV-->switch to PO Augmentin, cont full course as outpatient -stopped nebs 8. Elevated troponin with EKG changes: - Cardiology consulted - echo: no wall motion abnormalities - no chest pain Metoprolol added , tolerating well no further interventions at this time 9. Abdominal pain-resolved DVT Prophylaxis-N/A as patient is palliative care measures at this point Dispo-transfer to Oncology floor; plan for home with Hospice tomorrow. Of note , pt would like to cont PT/OT to help her get up and feel good. DO Rosa Isela Vaughan Hospitalist DO Rosa Isela Vaughan Hospitalist Current Inpatient Medications: Current Inpatient Medications Medications (Trade) Dose Ordered Sig/Darcy Route Start Time Stop Time Status Last Admin Dose Admin Acetaminophen (Tylenol Tab) 650 mg Q4H PRN PO 11/24/16 23:00 12/24/16 22:59 Hydromorphone HCl (Dilaudid Inj) 0.5 mg Q3H PRN IV 11/24/16 23:00 12/08/16 22:59 Ondansetron HCl (Zofran Inj) 4 mg Q6H PRN IV 11/24/16 23:00 12/24/16 22:59 Oxycodone/ Acetaminophen (Percocet 5-325mg Tab) 1 tab Q6H PRN PO 11/24/16 23:00 12/08/16 22:59 11/26/16 14:25 1 TAB Albuterol/ Ipratropium (Duoneb) 3 ml Q2H PRN INH 11/24/16 23:00 12/24/16 22:59 Senna/Docusate Sodium (Senokot S Tab) 1 tab DAILY PO 11/25/16 09:00 12/25/16 08:59 11/28/16 08:08 1 TAB Enteral Nutritional Formula (Boost Plus Vanilla) 1 can BID@1000,1900 PO 11/25/16 19:00 12/25/16 18:59 11/27/16 21:42 1 CAN Gadobutrol (Gadavist) 5 mmol UD PRN IV 11/25/16 18:45 11/29/16 18:44 Insulin Glargine (Lantus Solostar Pen) 5 unit HS SC 11/26/16 21:00 12/26/16 20:59 11/27/16 21:42 5 UNIT Insulin Aspart (novoLOG ASPART) SLIDING SCALE If C... ACHS SC 11/25/16 21:30 12/25/16 21:29 11/26/16 17:47 1 UNITS Glucose (Glucose 40% Gel) 15-30 GRAMS 15 GRAMS... UD PRN PO 11/25/16 21:15 12/25/16 21:14 Glucose (Glucose Chew Tab) 4-8 Tablets 4 Tabl... UD PRN PO 11/25/16 21:15 12/25/16 21:14 Dextrose (Dextrose 50% 50ML Syringe) 25-50ML OF 50% DW IV FOR... UD PRN IV 11/25/16 21:15 12/25/16 21:14 Glucagon (Glucagon Inj) 1 mg UD PRN SQ 11/25/16 21:15 12/25/16 21:14 Ipratropium [place] (Atrovent 0.02% 0.5MG/2.5ML Neb) 0.5 mg Q6R PRN INH 11/27/16 12:41 12/27/16 12:40 Dexamethasone (Decadron Tab) 4 mg Q6H PO 11/27/16 18:00 12/27/16 17:59 11/28/16 17:30 4 MG Amoxicillin/ Clavulanate Potassium (Augmentin Tab) 875 mg BIDM PO 11/27/16 17:00 12/04/16 16:59 11/28/16 17:30 875 MG Levalbuterol (Xopenex 1.25MG/ 0.5ML Neb) 1.25 mg Q6R PRN INH 11/27/16 12:46 12/27/16 12:45 Escitalopram Oxalate (Lexapro Tab) 10 mg DAILY PO 11/29/16 09:00 12/29/16 08:59
[2016-11-29] VITALS (7 sets, daily range): BP systolic 135–174; BP diastolic 81–96; PULSE 54–63; TEMP 36.4–36.6; O2SAT 92–97
[2016-11-29] MEDS: AMOXICILLIN/CLAVULANATE TAB 875 MG TAB PO SCH (07:49)
[2016-11-29] MEDS ORDERED: FUROSEMIDE 20 MG TAB PO SCH (08:00)
[2016-11-29] MEDS ORDERED: POTASSIUM CHLORIDE 10 MEQ TABCR PO SCH (08:00)
[2016-11-29] MEDS ORDERED: ESCITALOPRAM OXALATE 10 MG TAB PO SCH (08:00)
[2016-11-29] MEDS ORDERED: DEXAMETHASONE 4 MG TAB PO SCH (09:00)
[2016-11-29] MEDS: BOOST PLUS VANILLA PO SCH ×2 (10:00)
[2016-11-29] MEDS ORDERED: DXM4 PO (14:18)
[2016-11-29] MEDS ORDERED: LXP10 PO (14:18)
[2016-11-29] MEDS ORDERED: AMOX1TAB43 PO (14:18)
--- NOTE | 2016-11-29 14:22 | Discharge Instructions ---
Discharge Instructions Admission Reason for Admission: Respiratory Failure, Acute Discharge Discharge Diagnosis / Problem: Brain metastasis Discharge Goals Goal(s): Decrease discomfort Activity Recommendations Activity Limitations: resume your previous activity . Instructions / Follow-Up Instructions / Follow-Up Take all medications as instructed. Work with Hospice or primary care provider (PCP) to taper these down to reduce pill burden as you desire. You have been scheduled with a follow-up appointment with Dr. Elias for 12/03 @ 1:10pm for follow-up from this hospitalization. Please bring all paperwork with you to this appointment. It was a pleasure taking care of you! Call if you have any questions or problems. You can reach a [facility] hospitalist on duty at [facility] 24 hours a day by calling [phone]. Take care of yourself. Bryanna Calvin DO [facility] Hospitalist Current Hospital Diet Patient's current hospital diet: Regular Diet Discharge Diet Recommended Diet: Regular Diet Diet Texture: Pureed (blended smooth) (Or as instructed by speech pathology/ presales senior specialist) Pending Studies Studies pending at discharge: yes List of pending studies: Preliminary blood cultures negative at discharge-still awaiting final reading Laboratory Results Hemoglobin A1c Test 11/25/16 11:43 Range/Units Estimated Average Glucose 88 mg/dl Hemoglobin A1c 4.7 4.5-5.6 % Medical Emergencies . Who to Call and When: Medical Emergencies: If at any time you feel your situation is an emergency, please call 911 immediately. . Non-Emergent Contact Non-Emergency issues call your: Primary Care Provider, Oncologist . . "Provider Documentation" section prepared by Bryanna Calvin. VTE Core Measure Inpt VTE Proph given/why not?: SCD's
--- NOTE | 2016-12-05 09:10 | Discharge Summary ---
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 Consultations: Oncology, Radiation Oncology, Pulmonary, Cardiology Pending Studies/Follow-Up: see instructions below Medication Reconciliation New Medications: Amoxicillin & Pot Clavulanate (Amoxicillin/Clavulanate P) 1 Tab Tab 875 MG PO BIDM for 6 Days, #12 TAB Dexamethasone (Dexamethasone) 4 Mg Tab 4 MG PO UD for 6 Days, #9 TAB Take one tab every 12 hours for the next 3 days, then take one tab daily for three days, then stop. Escitalopram Oxalate (Escitalopram Oxalate) 10 Mg Tab 10 MG PO DAILY for 5 Days, #5 TAB cont for 5 days then stop completely Continued Medications: Enteral Nutrition Formula (Ensure Plus Vanilla) 1 Can Liqd 0.5 CAN PO DAILY, CAN Furosemide (Lasix) 20 Mg Tab 20 MG PO DAILY, TAB Ondansetron Hcl (Zofran) 8 Mg Tab 8 MG PO DAILY, TAB Oxygen (Oxygen) Gas 2 LITERS NA CONTINOUS Potassium Chloride (Potassium Chloride Er) 10 Meq Tab 10 MEQ PO DAILY, #30 Tramadol (Ultram) 50 Mg Tab 50 MG PO Q4H PRN for Pain, TAB Discontinued Medications: Escitalopram (Lexapro) 10 Mg Tab 20 MG PO DAILY, TAB Admission Information HPI (per Admitting provider): CHIEF COMPLAINT: Leg pain as per patient headache as per records, although patient denies this. 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 In December 2015, px found to have showed hypermetabolic mediastinal lymphadenopathy suspicious for neoplasm and lung nodules on PET scan. Bronchoscopy was showed adenocarcinoma. Patient underwent combined chemoradiation. January 2016, patient noted to have blurred vision sx. An MRI of the brain showed a right temporal mass. Initially thought to be meningioma as per records. June of 2016, a ffup MRI was done at [facility] showed a 2.4 x 2.3 cm mass left frontotemporal lobe with surrounding vasogenic edema with a right midline shift consistent with metastatic foci. There was also a 4-mm mass on the left cerebellum. Patient transferred to [facility], started on steroids. Patient was not felt to be a neurosurgical candidate at [facility] Radiation Oncology consulted. July of 2016 Family sought second opinion from [facility] regarding brain mets. Underwent gamma knife radiotherapy for brain tumor in [place] by Dr. Meier. August 2016 FFup MRI of the brain in showed left anterior temporal lobe lesion smaller in size. T2 isointense lesion, right anterior temporal convexity unchanged. PET scan noted pelvic adenopathy suspicious for metastatic disease. Patient subsequently underwent radiation therapy at [facility]. Completed last October 2016. Since the last few months, the patient has been troubled by bilateral leg swelling, which would improve w outpatient diuretic courses. Initially thought to be related to intermittent steroid courses for brain tumor. Patient's daughter also troubled by persistent dry cough symptoms. Few days ago, the patient's family worried about patient occasionally being confused. Patient seen at PCP's office for worsening swelling of both legs, Lasix prescribed and LE swelling improved. At some point, the patient noted to be hypoxemic, needed oxygen at home. Patient denies chest pain, shortness of breath. Patient noted to be unstable, almost falling back. Occasional complaints of vague headaches. Patient has no recollection of above symptoms. Marked short term memory impairment since gamma knife surgery last 07/2016. Tonight, patient complained of pain more on the left leg and headache complaints which patient denied upon arrival of EMS. No nausea, no vomiting. Patient also complained to family of left-sided abdominal pain, achy, some constipation. Denies inordinate intake of home narcotics. Patient brought to the Emergency Room for multiple complaints. Physical Exam (per Admitting): PHYSICAL EXAMINATION: VITAL SIGNS: Blood pressure was noted to be 124/85, pulse rate 94, RR 20, temperature 37, sats 94 on 2 liters. GENERAL: oriented, coherent, appropriate albeit slowed response to questions. Hyposthenic. no respiratory distress. SKIN: Pallor. HEENT: Pale palpebral conjunctivae. Dry mucosa. Nasal cannula in place. NECK: No JVD. supple CHEST: Decreased effort. HEART: Regular rate and rhythm. ABDOMEN: Some tenderness on the left. EXTREMITIES: Bilateral lower extremity edema. No tenderness. NEUROLOGIC: Some slowed response, decreased strength on the LLE (chronic as per patient), gait and stance not assessed. Hospital Course 76 yoF with lung adenocarcinoma that is Stage IV with mets to her brain presented to the hospital for possible confusion, left leg pain and swelling, abdominal pain, and shortness of breath. 1. New brain metastasis -Left temporal lobe- with vasogenic edema: -no headache or new focal neuro deficits today. -dec Decadron 4mg to [id number] trial given at discharge -blood sugar checks were stopped 2/2 comfort -reviewed plan with Dr. Turner (Rad Onc) who agrees with plan. 2. Headache-resolved 3. Anasarca-improved, cont MONTRELL hose, off oxygen today, s/p 2 days Lasix/ albumin. Hypoalbuminemia contributing. Oxygen as needed. Will cont Lasix/ potassium for comfort. Daughter became very emotional when we discussed stopping that treatment. Agree this could be considered palliative. 4. Stag IV lung adenocarcinoma-family decided to go home with Hospice. Modified comfort care measures instituted at this point. Code status changed to DNR after conversation with the family. 5. Pneumonia-cont Augmentin 6. Aspiration/swallowing issues-per Speech Strict NPO would be safest with alternative methods of nitration and hydration, however, alternative is to allow for permissive aspiration based on level of aggressiveness desired. For now, cont with pureed diet, no straws and strict aspiration precautions. 7. Bilateral pleural effusion, poss malignant etiology with pneumonia. Pulm consulted earlier during admission and recommends no thoracentesis -Zosyn/Doxy IV-->switch to PO Augmentin, cont full course as outpatient -stopped nebs 8. Elevated troponin with EKG changes: - Cardiology consulted - echo: no wall motion abnormalities - no chest pain Metoprolol added , tolerating well no further interventions at this time--stopped at discharge to minimize medications/improve QOL 9. Abdominal pain-resolved DVT Prophylaxis-N/A as patient is palliative care measures at this point Dispo-transferred to Oncology floor then was home with Hospice. Of note, pt would like to cont PT/OT to help her get up and feel good. DO [facility] Hospitalist DO Fran Vuaghan Alfonso Total time spent on discharge = 60 minutes This includes examination of the patient, discharge planning, medication reconciliation, and communication with other providers. Discharge Instructions Discharge Instructions Admission Reason for Admission: Respiratory Failure, Acute Discharge Discharge Diagnosis / Problem: Brain metastasis Discharge Goals Goal(s): Decrease discomfort Activity Recommendations Activity Limitations: resume your previous activity . Instructions / Follow-Up Instructions / Follow-Up Take all medications as instructed. Work with Hospice or primary care provider (PCP) to taper these down to reduce pill burden as you desire. You have been scheduled with a follow-up appointment with Dr. Elias for 12/03 @ 1:10pm for follow-up from this hospitalization. Please bring all paperwork with you to this appointment. It was a pleasure taking care of you! Call if you have any questions or problems. You can reach a [facility] Hospitalist on duty at [facility] 24 hours a day by calling [phone]. Take care of yourself. Bryanna Calvin DO [facility] Additional Copies To Rad Elias D.O.
== END 2016-11-29 16:30 | disposition hospice, home (50) | DRG 54 ==
LOC: ENRESERVTM → ENRESERVDT → EDBD 16:47 → C.EDC 16:48 → C.MED 22:07 → C.4E 11-28 18:36
PROVIDERS: ADMIT Internal Medicine; ATTEND Hospitalist
DX: C79.31 Secondary malignant neoplasm of brain (principal); G93.6 Cerebral edema; J69.0 Pneumonitis due to inhalation of food and vomit; E43 Unspecified severe protein-calorie malnutrition; C77.5 Secondary and unspecified malignant neoplasm of intrapelvic lymph nodes; C34.90 Malignant neoplasm of unspecified part of unspecified bronchus or lung; J91.0 Malignant pleural effusion; Z51.5 Encounter for palliative care; R64 Cachexia; Z68.1 Body mass index [BMI] 19.9 or less, adult; E83.51 Hypocalcemia; M79.605 Pain in left leg; M79.89 Other specified soft tissue disorders; D64.9 Anemia, unspecified; E87.6 Hypokalemia; T50.2X5A Adverse effect of carbonic-anhydrase inhibitors, benzothiadiazides and other diuretics, initial encounter; R13.10 Dysphagia, unspecified; J43.9 Emphysema, unspecified; R78.89 Finding of other specified substances, not normally found in blood; E88.09 Other disorders of plasma-protein metabolism, not elsewhere classified; R10.32 Left lower quadrant pain; J38.00 Paralysis of vocal cords and larynx, unspecified; I10 Essential (primary) hypertension; Z79.899 Other long term (current) drug therapy; Z99.81 Dependence on supplemental oxygen; Z66 Do not resuscitate; Z85.3 Personal history of malignant neoplasm of breast; Z85.42 Personal history of malignant neoplasm of other parts of uterus; Z85.89 Personal history of malignant neoplasm of other organs and systems; Z92.21 Personal history of antineoplastic chemotherapy; Z92.3 Personal history of irradiation; Z87.891 Personal history of nicotine dependence; Z80.9 Family history of malignant neoplasm, unspecified